=== PATIENT | male | born 1945 | race Asian ===

== ENCOUNTER 2020-02-07 10:15 | Outpatient (CLI) | payer OTHER, SELFPAY ==
--- NOTE | ~2020-02-07 | US_ITS ---
EXAMINATION: US FNA w image guidance DATE: 02/07/2020 11:16 INDICATION: Thyroid nodule. TECHNIQUE: The neck was prepped and draped in the usual sterile manner. 1% lidocaine was used for local anesthe miller. 5 passes were made with a 25G needle into the lesion. Appropriate needle location was document ed with continuous sonographic guidance. There were no immediate complications. The patient understo od to call the ordering physician for results after a week and a half and verbalized that understandi ng. FINDINGS: Grayscale ultrasound images demonstrate needles advanced into a 4.7 cm nodule in left thyroid lobe fo r biopsy. IMPRESSION: 1. Ultrasound-guided fine needle aspiration of a left thyroid nodule. Reviewed, dictated and finalized at location A. CTOR PRODUCT MANAGEMENT
== END 2020-02-07 10:16 | disposition home or self-care (01) ==
PROVIDERS: PCP Nurse Practitioner Family; Visit Provider Nurse Practitioner Family
DX: E04.1 Nontoxic single thyroid nodule (principal)
CPT/HCPCS: 10005; 88173; 88305

== ENCOUNTER → 2020-05-02 08:12 | Outpatient (CLI) | payer OTHER, SELFPAY ==
--- NOTE | ~2020-05-02 | CT_ITS ---
EXAMINATION: CT abdomen wo con DATE: 05/02/2020 08:45 INDICATION: Left upper quadrant pain TECHNIQUE: Computed tomography (CT) of the abdomen was performed without intravenous contrast. The do se-length product (DLP) was 396.25 mGy-cm. Automated exposure control and iterative reconstruction te chnique were employed. COMPARISON: None FINDINGS: Minimal dependent atelectasis is present in the lung bases. The heart size is normal. Withi n the limitations of noncontrast examination, the liver, spleen,, gallbladder, and adrenal glands are normal. Punctate calcification in the head of the pancreas is consistent with chronic pancreatitis. There is a 5 mm hemorrhagic cyst in the right kidney upper pole. A 12 mm cyst is present in the right kidney as well. There is a 9 mm cyst of the left kidney upper pole. No hydronephrosis or hydroureter is identified. The appendix is normal. There are no dilated loops of bowel. No pathologically enlarg ed abdominal lymph nodes are identified. Calcified atherosclerosis is noted. There is mild lumbar spo ndylosis. IMPRESSION: 1. No CT correlate for the patient's symptoms. Reviewed, dictated and finalized at location A. Z OS MAINFRAME SYSTEMS PROGRAMMER
== END ==
PROVIDERS: PCP Family Medicine; Visit Provider Nurse Practitioner Family
DX: R10.12 Left upper quadrant pain (principal)
CPT/HCPCS: 74150

== ENCOUNTER 2021-02-20 08:09 | Outpatient (CLI) | payer OTHER, SELFPAY ==
--- NOTE | 2021-02-20 09:10 | ECG_ITS ---
Measurements Intervals Orange Rate: 66 P: 35 AR: 176 QRS: 266 QRSD: 97 T: 17 QT: 381 QTc: 401 Interpretive Statements SINUS RHYTHM RIGHT AXIS DEVIATION INCOMPLETE RIGHT BUNDLE BRANCH BLOCK INFERIOR INFARCT, AGE INDETERMINATE BASELINE ARTIFACT- I, II, AVR, AVL, AVF ABNORMAL ECG Electronically Signed On 02-20-2021 9:35:31 CORPORATE RECYCLING MANAGER by Ismael Lal D.O.
[2021-02-20 09:40] LABS: Basophils Absolute Auto 0.1 K/mm3 (0.0-0.1); Eosinophils Absolute Auto 0.5 K/mm3 (0-0.3); Eosinophils Percent Auto 8.6 % (0-4.4); Hematocrit 47.7 % (42.0-52.0); Hemoglobin 16.1 g/dL (14.0-18.0); Immature Granulocyte Absolute 0.01 K/mm3 (0.00-0.031); Immature Granulocyte Percent A 0.2 % (0-0.5); Lymphocytes Absolute Auto 1.97 K/mm3 (0.9-3.2); Lymphocytes Percent Auto 33.1 % (18.3-44.2); Mean Corpuscular HGB Conc 33.8 g/dl (32-36); Mean Corpuscular Hemoglobin 31.1 pg (26-34); Mean Corpuscular Volume 92.1 fl (80-100); Mean Platelet Volume 9.7 fl (7.4-10.4); Monocytes Absolute Auto 0.6 K/mm3 (0.1-0.6); Monocytes Percent Auto 9.7 % (2.6-8.5); Neutrophils Absolute Auto 2.8 K/mm3 (1.3-6.7); Neutrophils Percent Auto 47.4 % (45.5-73.1); Platelet Count Result 209 k/mm3 (150-375); Red Blood Count 5.18 M/mm3 (4.6-6.20); Red Cell Distribution Width 13.2 % (11.5-14.5)
[2021-02-20 09:54] LABS: Anion Gap 10 mmol/L (8-16); Blood Urea Nitrogen 11 mg/dL (9-20); Calcium 9.5 mg/dL (8.4-10.2); Carbon Dioxide 31 mmol/L (22-30); Chloride 101 mmol/L (98-107); Estimated Glomerular Filt Rate > 60; Glucose 111 mg/dL (65-110); INR 0.9; Partial Thromboplastin Time 26.2 SECONDS (22.3-36.8); Potassium 3.6 mmol/L (3.4-5.0); Prothrombin Time 12.2 Seconds (11.1-14.7); Sodium 142 mmol/L (137-145)
== END 2021-02-20 08:10 | disposition home or self-care (01) ==
LOC: ANHSURGERY 08:15
PROVIDERS: PCP Family Medicine; Visit Provider Urology
DX: N40.0 Benign prostatic hyperplasia without lower urinary tract symptoms (principal); I10 Essential (primary) hypertension; Z01.818 Encounter for other preprocedural examination; I45.10 Unspecified right bundle-branch block
CPT/HCPCS: 36415; 80048; 85025; 85610; 85730; 87086; 87088; 93005

== ENCOUNTER 2021-02-26 09:39 | Inpatient (IN) | payer OTHER, SELFPAY ==
--- NOTE | 2021-02-20 08:43 | PC.NURSE ---
Report to the Outpatient Waiting Room, entrance under the green pavilion located off [facility], at time 1130 on date __02/24/21 . OR Time: _1:30 PM . - You and your visitor will be asked a series of questions to screen for COVID 19 for your protection. - A mask is required within the hospital. - Only one visitor is allowed at this time. Patient visitors will be guided where to wait when not with patient. Preoperative COVID Testing Requirements: No COVID Test needed if: (proof is required; if not received patient will have Rapid Test prior to entry) - Patient has received COVID Vaccine at least 14 days prior to procedure date or - Patient has positive COVID test result within last 90 days of surgery date. COVID Test needed if above criteria is not met If not COVID vaccinated a COVID test must be conducted within 72 hours of surgery and patient is asked to isolate self from time of testing until procedure. You will go to the [facility] for your COVID testing. The [facility] is located at the corner of [address] [facility]. You will only be called if COVID results are positive and your surgeon may reschedule your elective surgery date. Patients may have clear liquids (water, carbonated beverages, clear teas, apple juice) until 3 hours prior to surgery with a maximum of 20 ounces. - No food from midnight until time of surgery - Infants may have breast milk until 4 hours before surgery, formula 6 hours prior to surgery. - Children will be allowed to drink immediately following surgery. If applicable, please bring a bottle or sippy cup to assist with drinking. Juice, water, soda, and popsicles are readily available. For infants on formula, please bring formula the day of surgery. Pacifiers are allowed. Take the following medications with a SIP of water the morning of surgery: ___NONE Medications to discontinue per physician ____ALL VITAMINS AND SUPPLEMENTS 3 DAYS PRE OP Date to take last dose___02/20/21 Please no make-up, nail [place], hairspray, perfume, deodorant, or body powder the day of surgery. No jewelry (including any body piercings) or valuables the day of surgery, leave them at home. Please take a shower or bath the night before, or the morning of, surgery with an antibacterial soap. Wear comfortable, loose fitting clothing. Children are encouraged to wear pajamas. - Jewelry must be removed prior to entering the operating room. Rings and piercings that are not removed may be cut off. - The hospital will not accept responsibility for valuables. - Please leave all valuables, including medications, at home the day of surgery. If you are going home after surgery, a licensed pile driver operator barge mounted must drive you home. - NO public transportation without another adult. - We recommend that an adult stay with you for 24 hours following discharge. - We also recommend that you do not drive, make important decision, drink alcoholic beverages, or take any drugs that were not prescribed by your health care provider for at least 24 hours after your discharge time. For Pediatric surgeries, we recommend two adults accompany the child home (only one inside the building at this time). Follow any additional instructions given to you from your surgeon. VERBAL instructions given to PATIENT AND DAUGHTER KIM and asked if any additional questions and then verbalized understanding. Patient advised to call surgeon office or pre surgery nurse liaison [phone] if any additional questions.
[2021-02-20 09:12] VITALS: BP 135/78; PULSE 71; RESP 16; TEMP 36.8; O2SAT 97; BMI 25.7
[2021-02-24] VITALS (19 sets, daily range): BP systolic 109–182; BP diastolic 72–106; PULSE 63–84; RESP 14–20; TEMP 36.1–36.9; O2SAT 94–100; BMI 25.4
--- NOTE | 2021-02-24 10:31 | WPDHPUPDATE1 ---
History and Physical Update Update Date/Time: 02/24/21 10:31 History and Physical has been reviewed, including an updated exam of the patient. There are NO changes in the patient's condition. Risks, benefits, and alternatives have been discussed and questions answered. Patient agrees to proceed with procedure.
[2021-02-24] MEDS: LACTATED RINGERS 1,000 ML 30 ML IV CONT (11:30)
--- NOTE | 2021-02-24 11:43 | P.PNAN_ITS ---
Anes - Initial Pre Proc Eval Procedure: Operation Date: 02/24/21 13:30 Proposed Procedures p Trans Urethral Resection Prostate - Abraham Albert MD Date/Time: 02/24/21 11:43 Surgeon: Abraham Albert MD Pre Op Diagnosis: bph Patient Data Age: 75 Gender: M Height: 1.68 m Weight: 72.3 kg Last Vital Signs Temp 36.8 C 02/20/21 09:12 Pulse 71 02/20/21 09:12 Resp 16 02/20/21 09:12 BP 135/78 02/20/21 09:12 Pulse Ox 97 02/20/21 09:12 Allergies Allergy/AdvReac Type Severity Reaction Status Date / Time No Known Allergies Allergy Verified 02/20/21 08:21 Home Medications Medication Instructions Recorded Confirmed Type mirabegron 50 mg tablet,extended 50 mg PO DAILY 04/14/20 02/20/21 History release 24 hr ihmnyq-maqwpyqs-pjlzwxu 1 cap PO TIDWMEAL 11/19/20 02/20/21 History 36,000-114,000-180,000 unit capsule,delay rel metformin 1,000 mg tablet 1,000 mg PO BID #180 tablet 12/29/20 02/20/21 Rx losartan 25 mg tablet 25 mg PO DAILY #30 tablet 01/20/21 02/20/21 Rx atorvastatin 10 mg tablet 10 mg PO QHS tablet 01/22/21 02/20/21 History blood sugar diagnostic #100 ea 01/22/21 01/22/21 Rx blood-glucose meter #1 ea 01/22/21 01/22/21 Rx lancets #100 ea 01/22/21 01/22/21 Rx glipizide 5 mg tablet, extended 5 mg PO DAILY #90 tablet 02/18/21 02/20/21 Rx release 24 hr cyanocobalamin (vitamin B-12) 1,000 mcg PO DAILY 02/20/21 02/20/21 History omega 6-iis-dhh-fish oil [Fish Oil] 1 cap PO DAILY 02/20/21 02/20/21 History tamsulosin 0.4 mg PO HS 02/20/21 02/20/21 History Patient hx anesthesia problems: none Family hx anesthesia problems: none Results Review: All pre-operative results and documents have been reviewed as part of the pre-operative evaluation. PMFSH Past Medical History Medical History Diabetes type 2, uncontrolled Elevated PSA GERD (gastroesophageal reflux disease) Hyperlipidemia Hypertension Paget's disease of skin of scrotum (~2017) Follows at [facility] Thyroid nodule Social History Social History Smoking packs per day: 0.5 Smoking cigarettes per day: 10.0 Years smoked: 20 Smoking pack-years: 10.00 Tobacco type: cigarettes Smoking end date: 03/21/95 Alcohol intake: never Substance use: never Living arrangements: with family Spiritual care concerns: No Anes - Eval Final PreProcedure Day of Procedure 02/24/21 11:43 Patient weight: normal Heart: regular rate and rhythm Lungs: decreased breath sounds Airway: Mallampati scale class III Neurological: other (alert) Last oral intake: >/= 8 hours ASA classification: III Emergent: no Anesthetic plan: proceed Anesthesia type and monitoring: general LMA and standard monitoring Other findings: interpretation thru daughter Results Review: All pre-operative results and documents have been reviewed as part of the pre-operative evaluation. Informed Consent: The patient's anesthetic plan and its attendant risks and benefits were discussed with the patient/family/POA. Questions were solicited and answers provided to the satisfaction of the patient/family/POA.
[2021-02-24 11:55] LABS: Glucose Point of Care 106 mg/dl (65-105)
[2021-02-24] MEDS: ceFAZolin 2 GM/D5W 50 ML 2 GM/50 ML BAG IVPB (12:10)
[2021-02-24] MEDS: LIDOCAINE HCL 2% GEL UROJET 10 ML PKG MUCOUS MEM (12:57)
--- NOTE | 2021-02-24 13:01 | P.OP_ITS ---
Procedure Note - Detailed Date of Procedure 02/24/21 Pre-op Diagnosis bph Post-op Diagnosis same Procedure Performed Transurethral resection of residual prostatic tissue Surgeon Abraham Albert MD Anesthesia general Description of Procedure Patient is taken to the operative suite correctly identified. Once anesthesia was obtained was placed in dorsal lithotomy position and prepped draped usual sterile fashion. Urethra was dilated to 26 Cypriot. Twenty-four Cypriot resectoscope sheath was a plastic the bladder. Patient has some lateral lobe residual tissue but again has a high median bar area. There were no tumors noted. We resected the median bar area. We then took down any residual lateral lobes. Hemostasis was achieved using electrocautery. Chips were then sent for analysis. 2% viscous lidocaine was inserted into the urethra to [address]. We inflated the balloon to 20 cc. This was connected to continuous bladder irrigation and patient is taken recovery room stable condition. He will be admitted for CBI. Neal can come out on Tuesday Estimated Blood Loss 25 Drains Yes Packing No Pathology yes Complications No immediate complications Condition stable Disposition PACU
[2021-02-24 13:21] LABS: Glucose Point of Care 113 mg/dl (65-105)
[2021-02-24] MEDS: LABETALOL HCL INJ 100 MG/20 ML VIAL IV PUSH (13:42)
--- NOTE | 2021-02-24 14:22 | SUR.PHASEI ---
1422 - dr. gonzalez aware of b/p of 162/101. no orders received.
--- NOTE | 2021-02-24 15:35 | ADMGEN ---
This patient, Asael Campbell, was admitted to 2 Medical Room 256-. Patient/family oriented to hospital policies and general routines including ID bracelet, bed and alarms, visiting hours, pain management, procedures, bathroom and other care routines, personal items, smoking policy, room service/diet, and visiting hours. Information on how to activate the Rapid Response Team has been discussed. Patient/Family are encouraged to report perceived risks to care and to ask questions if they do not understand what they are told or what they should do.
[2021-02-24] MEDS: DOCUSATE SODIUM 100 MG CAPSULE PO (16:14)
[2021-02-24] MEDS: DEXTROSE 5%/LACTATED RINGERS 1,000 ML 125 ML IV CONT (16:15)
[2021-02-24] MEDS: HYOSCYAMINE SULFATE 0.125 MG TABLET SUBLINGUAL (16:24)
[2021-02-24 17:58] LABS: Glucose Point of Care 229 mg/dl (65-105)
[2021-02-24] MEDS: metFORMIN HCL 500 MG TABLET 1000 MG PO (17:58)
[2021-02-24] MEDS: ATORVASTATIN 10 MG TABLET PO (20:04)
[2021-02-24] MEDS: TAMSULOSIN HCL 0.4 MG CAPSULE PO (20:04)
[2021-02-24] MEDS: HYDROcodone/acetaminophen (*CRX) 5-325 MG TABLET 1 TAB PO (20:38)
[2021-02-24 21:20] LABS: Glucose Point of Care 246 mg/dl (65-105)
[2021-02-25] VITALS: BP 107/67; PULSE 66; RESP 18; TEMP 36.4; O2SAT 97
[2021-02-25 04:00] VITALS: BP 111/70; PULSE 82; RESP 18; TEMP 36.3; O2SAT 97
[2021-02-25 06:22] LABS: Anion Gap 7 mmol/L (8-16); Blood Urea Nitrogen 9 mg/dL (9-20); Calcium 8.4 mg/dL (8.4-10.2); Carbon Dioxide 26 mmol/L (22-30); Chloride 101 mmol/L (98-107); Estimated CRCL calculation 70 ml/min; Estimated Glomerular Filt Rate > 60; Glucose 130 mg/dL (65-110); Hematocrit 39.7 % (42.0-52.0); Hemoglobin 13.5 g/dL (14.0-18.0); Potassium 3.7 mmol/L (3.4-5.0); Sodium 134 mmol/L (137-145)
[2021-02-25 07:47] LABS: Glucose Point of Care 125 mg/dl (65-105)
[2021-02-25] MEDS: metFORMIN HCL 500 MG TABLET 1000 MG PO ×2 (08:01→17:12)
[2021-02-25] MEDS: DOCUSATE SODIUM 100 MG CAPSULE PO ×2 (08:01→17:12)
[2021-02-25] MEDS: LOSARTAN POTASSIUM 25 MG TABLET PO (08:01)
[2021-02-25] MEDS: glipiZIDE XL 5 MG TABCR PO (08:01)
--- NOTE | 2021-02-25 08:04 | WPDUROPN2 ---
Progress Note: A&P Assessment and Plan (1) BPH (benign prostatic hyperplasia): Code(s): N40.0 - Benign prostatic hyperplasia without lower urinary tract symptoms Status: Acute Assessment and Plan: Doing well overall. Urine still somewhat red requiring continuous bladder irrigation. Will continue that for today and re-evaluate later this afternoon. Subjective Subjective Date/Time Seen: 02/25/21 08:04 Post Op day: 1 (TUR of residual prostatic tissue) Principal diagnosis: BPH Interval history: Patient's son communicated that he did well overnight. May have had a slight spasm. Otherwise no major complaints. Review of Systems Review of Systems: All systems reviewed & are unremarkable except as noted in HPI and below Exam Const: General: cooperative and no acute distress Objective Data Vital Signs Vital Signs: Vital Signs - 24 hr 02/24/21 11:30 02/24/21 13:04 02/24/21 13:15 Temperature 36.2 C L 36.9 C Pulse Rate 72 81 78 Respiratory Rate 16 20 14 Blood Pressure 150/85 H 109/72 114/77 Pulse Oximetry 99 99 100 02/24/21 13:30 02/24/21 13:40 02/24/21 13:42 Temperature Pulse Rate 84 83 80 Respiratory Rate 16 Blood Pressure 167/94 H 182/106 H Pulse Oximetry 97 94 02/24/21 13:55 02/24/21 14:10 02/24/21 14:25 Temperature Pulse Rate 71 70 71 Respiratory Rate 14 14 14 Blood Pressure 163/102 H 173/104 H 162/101 H Pulse Oximetry 94 94 94 02/24/21 14:40 02/24/21 14:55 02/24/21 15:10 Temperature Pulse Rate 71 77 66 Respiratory Rate 16 18 20 Blood Pressure 164/100 H 156/95 H 157/81 H Pulse Oximetry 95 97 96 02/24/21 15:20 02/24/21 15:35 02/24/21 15:45 Temperature 36.4 C Pulse Rate 68 65 Respiratory Rate 16 16 16 Blood Pressure 141/80 H 152/82 H Pulse Oximetry 98 98 99 02/24/21 16:00 02/24/21 16:30 02/24/21 17:30 Temperature 36.4 C 36.6 C 36.6 C Pulse Rate 66 77 69 Respiratory Rate 18 18 18 Blood Pressure 149/81 H 150/81 H 139/76 Pulse Oximetry 97 99 97 02/24/21 19:48 02/25/21 00:00 02/25/21 04:00 Temperature 36.1 C L 36.4 C 36.3 C L Pulse Rate 63 66 82 Respiratory Rate 18 18 18 Blood Pressure 135/75 107/67 111/70 Pulse Oximetry 98 97 97 Intake/Output Intake/Output: Intake & Output 02/22/21 02/23/21 02/24/21 02/25/21 23:59 23:59 23:59 23:59 Intake Total 520 1340 Output Total 5850 2100 Balance -2926 -772 Meds/Results Medications: Active Medications Generic Name Dose Route Start Last Admin Trade Name Freq PRN Reason Stop Dose Admin Hydrocodone Bitart/Acetaminophen 1 tab 02/24/21 15:28 02/24/21 20:38 Hydrocodone/Acetaminophen (*Crx) 5-325 Mg Tablet PO 1 tab Q4H PRN Administration Pain Rated 1-6 Atorvastatin Calcium 10 mg 02/24/21 21:00 02/24/21 20:04 Atorvastatin 10 Mg Tablet PO 10 mg HS BRET Administration Cephalexin HCl 500 mg 02/25/21 13:00 Cephalexin 500 Mg Capsule PO QID BRET Docusate Sodium 100 mg 02/24/21 17:00 02/25/21 08:01 Docusate Sodium 100 Mg Capsule PO 100 mg BID BRET Administration Glipizide 5 mg 02/25/21 09:00 02/25/21 08:01 Glipizide Xl 5 Mg Tabcr PO 5 mg DAILY BRET Administration Hyoscyamine 0.125 mg 02/24/21 15:28 02/24/21 16:24 Hyoscyamine Sulfate 0.125 Mg Tablet SUBLINGUAL 0.125 mg Q6H PRN Administration Bladder Spasm Losartan Potassium 25 mg 02/25/21 09:00 02/25/21 08:01 Losartan Potassium 25 Mg Tablet PO 25 mg DAILY BRET Administration Metformin HCl 1,000 mg 02/24/21 17:00 02/25/21 08:01 Metformin Hcl 500 Mg Tablet PO 1,000 mg BID BRET Administration Morphine Sulfate 2 mg 02/24/21 15:28 Morphine Sulfate (*Crx) 2 Mg/Ml Inj IV PUSH Q2H PRN Pain Rated 7-10 Naloxone HCl 0.1 mg 02/24/21 15:28 Naloxone Hcl 0.4 Mg/Ml Vial IV PUSH Q2M PRN Opiate Reversal Ondansetron HCl 4 mg 02/24/21 15:28 Ondansetron Inj 4 Mg/2 Ml Vial IV PUSH Q12H PRN Nausea And Vomiting [place]
[2021-02-25 08:12] VITALS: BP 149/80; PULSE 88; RESP 18; TEMP 36.9; O2SAT 98
--- NOTE | 2021-02-25 08:58 | WPDANESPN ---
Anes - Prog Note Post-Op Date/Time: 02/25/21 08:58 Cardiovascular status: normal Respiratory status: normal Airway patency: baseline Mental status: baseline Post-Op hydration status: normal Vital Signs: Last Vital Signs Temp 36.9 C 02/25/21 08:12 Pulse 88 02/25/21 08:12 Resp 18 02/25/21 08:12 BP 149/80 H 02/25/21 08:12 Pulse Ox 98 02/25/21 08:12 Pain Score (VAS): 2 I/O: Intake & Output 02/24/21 02/25/21 02/25/21 23:59 07:59 15:59 Intake Total 170 1340 120 Output Total 1500 2100 Balance -1330 -760 120 Laboratory Tests 02/25/21 05:42 02/25/21 05:42 02/24/21 02/24/21 02/24/21 11:53 13:19 17:56 Hgb Hct Sodium Potassium Chloride Carbon Dioxide Anion Gap BUN Creatinine Estim Creat Clear Calc Estimated GFR Glucose POC Capillary Glucose 106 H 113 H 229 H Calcium 02/24/21 02/25/21 02/25/21 20:05 05:42 05:42 Hgb 13.5 L Hct 39.7 L Sodium 134 L Potassium 3.7 Chloride 101 Carbon Dioxide 26 Anion Gap 7 L BUN 9 Creatinine 0.70 Estim Creat Clear Calc 70 Estimated GFR > 60 Glucose 130 H POC Capillary Glucose 246 H Calcium 8.4 02/25/21 07:33 Hgb Hct Sodium Potassium Chloride Carbon Dioxide Anion Gap BUN Creatinine Estim Creat Clear Calc Estimated GFR Glucose POC Capillary Glucose 125 H Calcium Post-procedural complaints: none Patient Feedback: Patient satisfied with anesthetic care.
[2021-02-25 11:19] LABS: Glucose Point of Care 124 mg/dl (65-105)
[2021-02-25 12:22] VITALS: BP 120/72; PULSE 100; RESP 18; TEMP 37.2; O2SAT 97
[2021-02-25] MEDS: CEPHALEXIN 500 MG CAPSULE PO ×3 (13:24→20:01)
[2021-02-25 16:36] LABS: Glucose Point of Care 166 mg/dl (65-105)
[2021-02-25 16:46] VITALS: BP 144/56; PULSE 100; RESP 18; TEMP 37.3; O2SAT 95
[2021-02-25 20:00] VITALS: BP 115/68; PULSE 81; RESP 16; TEMP 37; O2SAT 96
[2021-02-25] MEDS: ATORVASTATIN 10 MG TABLET PO (20:01)
[2021-02-25] MEDS: TAMSULOSIN HCL 0.4 MG CAPSULE PO (20:01)
[2021-02-26] VITALS (8 sets, daily range): BP systolic 108–138; BP diastolic 64–76; PULSE 88–109; RESP 16–18; TEMP 36.1–36.7; O2SAT 95–97
[2021-02-26 07:38] LABS: Glucose Point of Care 128 mg/dl (65-105)
[2021-02-26] MEDS: CEPHALEXIN 500 MG CAPSULE PO ×4 (08:43→20:28)
[2021-02-26] MEDS: DOCUSATE SODIUM 100 MG CAPSULE PO ×2 (08:43→16:35)
[2021-02-26] MEDS: glipiZIDE XL 5 MG TABCR PO (08:43)
[2021-02-26] MEDS: metFORMIN HCL 500 MG TABLET 1000 MG PO ×2 (08:43→16:35)
[2021-02-26] MEDS: LOSARTAN POTASSIUM 25 MG TABLET PO (08:43)
[2021-02-26 11:16] LABS: Hematocrit 40.2 % (42.0-52.0)
--- NOTE | 2021-02-26 12:06 | WPDUROPN2 ---
Progress Note: A&P Assessment and Plan (1) BPH (benign prostatic hyperplasia): Code(s): N40.0 - Benign prostatic hyperplasia without lower urinary tract symptoms Status: Acute (2) Gross hematuria: Code(s): R31.0 - Gross hematuria Status: Acute Assessment and Plan: Improved slightly with high flow CBI. H&H is improved. He will be NPO after midnight and we will re-assess tomorrow, if urine remains bloody on CBI will plan to go to the OR for a cystoscopy with fulgeration and morris exchange. Subjective Subjective Date/Time Seen: 02/26/21 12:06 POD #2 TURP Patient is doing well, he denies pain, however his urine remains bloody with clots on high flow CBI. His H&H is improved from yesterday. He is tolerating diet and activity well. Review of Systems Cardiovascular: Cardiovascular: Denies chest pain Respiratory: Respiratory: Reports no additional respiratory complaints Gastrointestinal: Gastrointestinal: Denies abdominal pain, Denies nausea and Denies vomiting Genitourinary: Genitourinary: Reports hematuria, Denies dysuria, Denies flank pain and Denies urinary urgency Exam Resp: Effort & Inspection: normal respiratory effort Cardio: Rate: regular rate GI: GI Palp: Yes Soft to palpation and No Tenderness to palpation present (GI) : General: Yes no CVA tenderness Urinary Catheter: Urinary Catheter: patent and draining, urine red and urine with clots Extrem: General: no edema Objective Data Vital Signs Vital Signs: Vital Signs - 24 hr 02/25/21 12:22 02/25/21 16:46 02/25/21 20:00 Temperature 99.0 F 99.2 F 98.6 F Pulse Rate 100 100 81 Respiratory Rate 18 18 16 Blood Pressure 120/72 144/56 H 115/68 Pulse Oximetry 97 95 96 02/26/21 00:00 02/26/21 04:00 02/26/21 08:45 Temperature 96.9 F L 97.9 F 98.0 F Pulse Rate 109 H 100 99 Respiratory Rate 16 16 18 Blood Pressure 111/71 108/71 115/65 Pulse Oximetry 96 95 96 Intake/Output Intake/Output: Intake & Output 02/23/21 02/24/21 02/25/21 02/26/21 23:59 23:59 23:59 23:59 Intake Total 520 1820 240 Output Total 1197 6086 5200 [id number] [id number] [id number] Meds/Results Medications: Active Medications Generic Name Dose Route Start Last Admin Trade Name Freq PRN Reason Stop Dose Admin Hydrocodone Bitart/Acetaminophen 1 tab 02/24/21 15:28 02/24/21 20:38 Hydrocodone/Acetaminophen (*Crx) 5-325 Mg Tablet PO 1 tab Q4H PRN Administration Pain Rated 1-6 Atorvastatin Calcium 10 mg 02/24/21 21:00 02/25/21 20:01 Atorvastatin 10 Mg Tablet PO 10 mg HS BRET Administration Cephalexin HCl 500 mg 02/25/21 13:00 02/26/21 08:43 Cephalexin 500 Mg Capsule PO 500 mg QID BRET Administration Docusate Sodium 100 mg 02/24/21 17:00 02/26/21 08:43 Docusate Sodium 100 Mg Capsule PO 100 mg BID BRET Administration Glipizide 5 mg 02/25/21 09:00 02/26/21 08:43 Glipizide Xl 5 Mg Tabcr PO 5 mg DAILY BRET Administration Hyoscyamine 0.125 mg 02/24/21 15:28 02/24/21 16:24 Hyoscyamine Sulfate 0.125 Mg Tablet SUBLINGUAL 0.125 mg Q6H PRN Administration Bladder Spasm Losartan Potassium 25 mg 02/25/21 09:00 02/26/21 08:43 Losartan Potassium 25 Mg Tablet PO 25 mg DAILY BRET Administration Metformin HCl 1,000 mg 02/24/21 17:00 02/26/21 08:43 Metformin Hcl 500 Mg Tablet PO 1,000 mg BID BRET Administration Morphine Sulfate 2 mg 02/24/21 15:28 Morphine Sulfate (*Crx) 2 Mg/Ml Inj IV PUSH Q2H PRN Pain Rated 7-10 Naloxone HCl 0.1 mg 02/24/21 15:28 Naloxone Hcl 0.4 Mg/Ml Vial IV PUSH Q2M PRN Opiate Reversal Ondansetron HCl 4 mg 02/24/21 15:28 Ondansetron Inj 4 Mg/2 Ml Vial IV PUSH Q12H PRN Nausea And Vomiting Tamsulosin HCl 0.4 mg 02/24/21 21:00 02/25/21 20:01 Tamsulosin Hcl 0.4 Mg Capsule PO 0.4 mg HS BRET Administration Labs Labs: Laboratory Results - last 24 hr 02/25/21 02/26/21 02/26/21
[2021-02-26] MEDS: HYOSCYAMINE SULFATE 0.125 MG TABLET SUBLINGUAL ×2 (13:30→20:26)
[2021-02-26] MEDS: HYDROcodone/acetaminophen (*CRX) 5-325 MG TABLET 1 TAB PO ×2 (13:30→20:27)
[2021-02-26] MEDS: TAMSULOSIN HCL 0.4 MG CAPSULE PO (20:28)
[2021-02-26] MEDS: ATORVASTATIN 10 MG TABLET PO (20:28)
[2021-02-26] MEDS: MORPHINE SULFATE (*CRX) 2 MG/ML INJ IV PUSH (22:55)
[2021-02-26] MEDS: ONDANSETRON INJ 4 MG/2 ML VIAL IV PUSH (23:00)
[2021-02-27 02:00] VITALS: BP 110/71; PULSE 96; RESP 16; TEMP 36.6; O2SAT 98
[2021-02-27] MEDS: HYDROcodone/acetaminophen (*CRX) 5-325 MG TABLET 1 TAB PO (04:13)
[2021-02-27] MEDS: HYOSCYAMINE SULFATE 0.125 MG TABLET SUBLINGUAL (04:13)
[2021-02-27 05:42] VITALS: BP 107/70; PULSE 92; RESP 16; TEMP 36.7; O2SAT 95
[2021-02-27 06:29] LABS: Hemoglobin 13.1 g/dL (14.0-18.0)
[2021-02-27 08:00] VITALS: BP 126/69; PULSE 82; RESP 16; TEMP 36.6; O2SAT 95
--- NOTE | 2021-02-27 08:17 | WPDUROPN2 ---
Progress Note: A&P Assessment and Plan (1) BPH (benign prostatic hyperplasia): Code(s): N40.0 - Benign prostatic hyperplasia without lower urinary tract symptoms Status: Acute Assessment and Plan: Postoperative day 3. Transurethral section of prostate. Urine is continuing to clear. I personally irrigated his catheter without any evidence of clots. Will wean to off. If remains fairly clear will discharge home later today with catheter. Will plan on Neal catheter removal next Tuesday or Tuesday (2) Gross hematuria: Code(s): R31.0 - Gross hematuria Status: Acute Assessment and Plan: See above Subjective Subjective Date/Time Seen: 02/27/21 08:17 Post Op day: 3 Principal diagnosis: BPH Interval history: Continuing to improve with clear urine with minimal CBI at this time. Review of Systems Review of Systems: All systems reviewed & are unremarkable except as noted in HPI and below Exam Const: General: cooperative, comfortable and no acute distress Eyes: General: appearance normal, both eyes and all related structures Resp: Effort & Inspection: normal respiratory effort Cardio: Rate: regular rate Rhythm: regular rhythm Objective Data Vital Signs Vital Signs: Vital Signs - 24 hr 02/26/21 08:43 02/26/21 08:45 02/26/21 13:30 Temperature 36.7 C 36.7 C Pulse Rate 99 94 Respiratory Rate 18 18 18 Blood Pressure 115/65 123/64 Pulse Oximetry 97 96 97 02/26/21 16:00 02/26/21 20:00 02/26/21 22:25 Temperature 36.6 C 36.4 C L Pulse Rate 88 99 99 Respiratory Rate 18 16 16 Blood Pressure 111/66 138/76 Pulse Oximetry 97 95 95 02/27/21 02:00 02/27/21 05:42 Temperature 36.6 C 36.7 C Pulse Rate 96 92 Respiratory Rate 16 16 Blood Pressure 110/71 107/70 Pulse Oximetry 98 95 Intake/Output Intake/Output: Intake & Output 02/24/21 02/25/21 02/26/21 02/27/21 23:59 23:59 23:59 23:59 Intake Total 520 1820 980 Output Total 5850 4150 63771 1200 [facility] -[id number] -[id number] -1200 Meds/Results Medications: Active Medications Generic Name Dose Route Start Last Admin Trade Name Freq PRN Reason Stop Dose Admin Hydrocodone Bitart/Acetaminophen 1 tab 02/24/21 15:28 02/27/21 04:13 Hydrocodone/Acetaminophen (*Crx) 5-325 Mg Tablet PO 1 tab Q4H PRN Administration Pain Rated 1-6 Atorvastatin Calcium 10 mg 02/24/21 21:00 12 20:28 Atorvastatin 10 Mg Tablet PO 10 mg HS BRET Administration Cephalexin HCl 500 mg 02/25/21 13:00 02/26/21 20:28 Cephalexin 500 Mg Capsule PO 500 mg QID BRET Administration Docusate Sodium 100 mg 02/24/21 17:00 02/26/21 16:35 Docusate Sodium 100 Mg Capsule PO 100 mg BID BRET Administration Glipizide 5 mg 02/25/21 09:00 02/26/21 08:43 Glipizide Xl 5 Mg Tabcr PO 5 mg DAILY BRET Administration Hyoscyamine 0.125 mg 02/24/21 15:28 02/27/21 04:13 Hyoscyamine Sulfate 0.125 Mg Tablet SUBLINGUAL 0.125 mg Q6H PRN Administration Bladder Spasm Losartan Potassium 25 mg 02/25/21 09:00 02/26/21 08:43 Losartan Potassium 25 Mg Tablet PO 25 mg DAILY BRET Administration Metformin HCl 1,000 mg 02/24/21 17:00 02/26/21 16:35 Metformin Hcl 500 Mg Tablet PO 1,000 mg BID BRET Administration Morphine Sulfate 2 mg 02/24/21 15:28 02/26/21 22:55 Morphine Sulfate (*Crx) 2 Mg/Ml Inj IV PUSH 2 mg Q2H PRN Administration Pain Rated 7-10 Naloxone HCl 0.1 mg 02/24/21 15:28 Naloxone Hcl 0.4 Mg/Ml Vial IV PUSH Q2M PRN Opiate Reversal Ondansetron HCl 4 mg 02/24/21 15:28 02/26/21 23:00 Ondansetron Inj 4 Mg/2 Ml Vial IV PUSH 4 mg Q12H PRN Administration Nausea And Vomiting Tamsulosin HCl 0.4 mg 02/24/21 21:00 02/26/21 20:28 Tamsulosin Hcl 0.4 Mg Capsule PO 0.4 mg HS BRET Administration Labs Labs: Laboratory Results - last 24 hr 02/26/21 02/27/21 10:54 05:37 Hgb 14.0 13.1 L Hct 40.2 L 38.0 L
[2021-02-27] MEDS: CEPHALEXIN 500 MG CAPSULE PO ×3 (09:18→18:30)
[2021-02-27] MEDS: glipiZIDE XL 5 MG TABCR PO (09:18)
[2021-02-27] MEDS: LOSARTAN POTASSIUM 25 MG TABLET PO (09:18)
[2021-02-27] MEDS: DOCUSATE SODIUM 100 MG CAPSULE PO ×2 (09:18→18:30)
[2021-02-27] MEDS: metFORMIN HCL 500 MG TABLET 1000 MG PO ×2 (09:18→18:30)
[2021-02-27 09:20] VITALS: O2SAT 95
[2021-02-27 12:00] VITALS: BP 120/64; PULSE 89; RESP 16; TEMP 36.6; O2SAT 95
--- NOTE | 2021-02-27 15:52 | PM.DS ---
DS: Admitting Diagnosis Discharge Date 02/27/2021 Admitting Diagnosis BPH DS: Discharge Diagnosis Discharge Diagnosis (1) Gross hematuria: Code(s): R31.0 - Gross hematuria Status: Acute (2) BPH (benign prostatic hyperplasia): Code(s): N40.0 - Benign prostatic hyperplasia without lower urinary tract symptoms Status: Acute DS: Summary Hospital Course Hospital Course: See below Time Spent with Patient Time attestation: Total time spent providing and/or coordinating discharge services: DS: Data Data Completed and Pending Completed studies during hospitalization: Pending at discharge 02/24/21 12:57 Surgical [PTH] Routine Labs on day of discharge: Labs from last 24 hours 02/27/21 05:37 Hgb 13.1 L Hct 38.0 L Discharge Plan Discharge Attending physician on discharge: Abraham Albert Discharging Clinician: Genia Bonilla Anticipated Discharge Date/Time: 02/27/21 15:45 Patient Disposition: Home, Self-Care Activity: may shower Diet: as tolerated Discharge Instructions: Follow up in the office on 03/03/2021 at 10:30am with Genia DIA to have your morris removed. Also follow up on 03/12/2021 at 9:30am with Dr. Albert. If you develop a fever, worsening blood in your urine or severe pain call the office or go to the ER. Patient Instructions: Antibiotic Form Stand Alone Forms: General Discharge Information Follow-up/Referrals: Abraham Albert MD [Physician] - Discharge Medications: New tramadol [Ultram] 50 mg tablet 50 mg PO Q6H PRN (Reason: pain) Qty: 20 RF: 0 hyoscyamine sulfate [Anaspaz] 0.125 mg Tablet,Disintegrating 0.125 mg sublingual Q6H PRN (Reason: Bladder Spasm) Qty: 20 RF: 0 sulfamethoxazole-trimethoprim [Bactrim DS] 800-160 mg tablet 1 tablet PO Q12H Qty: 10 RF: 0 Continued Myrbetriq 50 mg tablet extended release 24 hr 50 mg PO DAILY RF: 0 Creon 36,000-114,000- 180,000 unit capsule,delayed release(DR/EC) 1 cap PO TIDWMEAL RF: 0 atorvastatin 10 mg tablet 10 mg PO QHS RF: 0 (DME) blood-glucose meter [Blood Glucose Monitoring] Kit See Rx Instructions .Route Qty: 1 RF: 0 (DME) Pharmacist Choice Strip See Rx Instructions .Route Qty: 100 RF: 2 (DME) lancets [Fingerstix Lancets] Misc See Rx Instructions .Route Qty: 100 RF: 2 tamsulosin 0.4 mg capsule 0.4 mg PO HS RF: 0 cyanocobalamin (vitamin B-12) 1,000 mcg Tablet 1,000 mcg PO DAILY RF: 0 omega 9-lce-ztd-fish oil [Fish Oil] 60-90-500 mg Capsule 1 cap PO DAILY RF: 0 metformin 1,000 mg tablet 1,000 mg PO BID Qty: 180 RF: 1 losartan 25 mg tablet 25 mg PO DAILY Qty: 30 RF: 3 glipizide 5 mg tablet extended release 24hr 5 mg PO DAILY Qty: 90 RF: 0 Date of admission: 02/26/21 12:48 Primary Care Provider: Emily Diaz Admitting Provider: Abraham Albert Attending physician on admission: Abraham Albert Condition: Improved
--- NOTE | 2021-02-27 15:53 | PM.DS ---
DS: Admitting Diagnosis Discharge Date 02/27/2021 Admitting Diagnosis BPH DS: Summary Hospital Course Hospital Course: See below Time Spent with Patient Time attestation: Total time spent providing and/or coordinating discharge services: 30 minutes Patient is s/p TURP on 02/24/2021, he tolerated the procedure with Dr. Albert well and went to recovery in stable condition. He then was transferred to the floor for further observation on CBI. He has continued to need CBI for two days d/t ongoing gross hematuria. The CBI was then weaned to off this morning and urine remains clear and light pink in color. He is tolerating pain and activity well. He will be discharged home today to resume all home medications including Levsin for bladder spasms, Ultram for pain and Bactrim to prevent infection. He will resume activity as tolerated and diabetic diet. He will be discharged home with his morris catheter and it will be removed next week. Exam Resp: Effort & Inspection: normal respiratory effort Cardio: Rate: regular rate GI: GI Palp: Yes Soft to palpation and No Tenderness to palpation present (GI) : General: Yes no CVA tenderness Urinary Catheter: Urinary Catheter: patent and draining, urine clear and urine pink Extrem: General: no edema DS: Data Data Completed and Pending Completed studies during hospitalization: Pending at discharge 02/24/21 12:57 Surgical [PTH] Routine Labs on day of discharge: Labs from last 24 hours 02/27/21 05:37 Hgb 13.1 L Hct 38.0 L Discharge Plan Discharge Attending physician on discharge: Abraham Albert Discharging Clinician: Genia Bonilla Anticipated Discharge Date/Time: 02/27/21 15:45 Patient Disposition: Home, Self-Care Activity: july shower Diet: as tolerated Discharge Instructions: Follow up in the office on 03/03/2021 at 10:30am with Genia DIA to have your morris removed. Also follow up on 03/12/2021 at 9:30am with Dr. Albert. If you develop a fever, worsening blood in your urine or severe pain call the office or go to the ER. Patient Instructions: Antibiotic Form Stand Alone Forms: General Discharge Information Follow-up/Referrals: Abraham Albert MD [Physician] - Discharge Medications: New tramadol [Ultram] 50 mg tablet 50 mg PO Q6H PRN (Reason: pain) Qty: 20 RF: 0 hyoscyamine sulfate [Anaspaz] 0.125 mg Tablet,Disintegrating 0.125 mg sublingual Q6H PRN (Reason: Bladder Spasm) Qty: 20 RF: 0 sulfamethoxazole-trimethoprim [Bactrim DS] 800-160 mg tablet 1 tablet PO Q12H Qty: 10 RF: 0 Continued Myrbetriq 50 mg tablet extended release 24 hr 50 mg PO DAILY RF: 0 Creon 36,000-114,000- 180,000 unit capsule,delayed release(DR/EC) 1 cap PO TIDWMEAL RF: 0 atorvastatin 10 mg tablet 10 mg PO QHS RF: 0 (DME) blood-glucose meter [Blood Glucose Monitoring] Kit See Rx Instructions .Route Qty: 1 RF: 0 (DME) Pharmacist Choice Strip See Rx Instructions .Route Qty: 100 RF: 2 (DME) lancets [Fingerstix Lancets] Misc See Rx Instructions .Route Qty: 100 RF: 2 tamsulosin 0.4 mg capsule 0.4 mg PO HS RF: 0 cyanocobalamin (vitamin B-12) 1,000 mcg Tablet 1,000 mcg PO DAILY RF: 0 omega 8-jyk-guv-fish oil [Fish Oil] 60-90-500 mg Capsule 1 cap PO DAILY RF: 0 metformin 1,000 mg tablet 1,000 mg PO BID Qty: 180 RF: 1 losartan 25 mg tablet 25 mg PO DAILY Qty: 30 RF: 3 glipizide 5 mg tablet extended release 24hr 5 mg PO DAILY Qty: 90 RF: 0 Date of admission: 02/26/21 12:48 Primary Care Provider: Emily Diaz Admitting Provider: Abraham Albert Attending physician on admission: Abraham Albert Condition: Improved
[2021-02-27 16:00] VITALS: BP 117/60; PULSE 89; RESP 16; TEMP 36.8; O2SAT 97
--- NOTE | 2021-02-27 19:41 | PC.NURSE ---
patient refuses evaluation by a psychiatrist at this time. will come back and try again tomorrow
== END 2021-02-27 19:45 | disposition home or self-care (01) | DRG 714 ==
LOC: ANHSURGERY 09:41 → ANH2MED 09:41
PROVIDERS: Admitting Provider Urology; PCP Family Medicine; Visit Provider Nurse Practitioner Adult Health
PROC: 0VT08ZZ Resection of Prostate, Via Natural or Artificial Opening Endoscopic (ICD-10-PCS; CPT 52601; principal; 2021-02-24 13:30)
DX: N40.0 Benign prostatic hyperplasia without lower urinary tract symptoms (principal); K21.9 Gastro-esophageal reflux disease without esophagitis; E78.5 Hyperlipidemia, unspecified; I10 Essential (primary) hypertension; E11.9 Type 2 diabetes mellitus without complications; E04.1 Nontoxic single thyroid nodule; F17.210 Nicotine dependence, cigarettes, uncomplicated; R31.0 Gross hematuria; Z79.84 Long term (current) use of oral hypoglycemic drugs
CPT/HCPCS: 36415; 80048; 82948; 85014; 85018; 88305; A9270; G0378; J0690; J2270; J2370; J2405; J2704; J3010; J7120; J7121

== ENCOUNTER 2021-10-05 14:43 | Outpatient (CLI) | payer OTHER, SELFPAY ==
[2021-10-05 19:16] LABS: Alanine Aminotransferase 75 U/L (6-50); Albumin Level 4.7 g/dL (3.5-5.1); Alkaline Phosphatase 65 U/L (38-126); Anion Gap 10 mmol/L (8-16); Aspartate Amino Transferase 60 U/L (17-59); Bilirubin,Total 0.5 mg/dL (0.2-1.3); Blood Urea Nitrogen 18 mg/dL (9-20); Calcium 9.5 mg/dL (8.4-10.2); Carbon Dioxide 31 mmol/L (22-30); Chloride 100 mmol/L (98-107); Estimated Glomerular Filt Rate > 60; Glucose 75 mg/dL (65-110); Potassium 4.3 mmol/L (3.4-5.0); Sodium 141 mmol/L (137-145)
[2021-10-05 21:01] LABS: Hemoglobin A1C 8.1 % (<5.7)
== END 2021-10-05 14:44 | disposition home or self-care (01) ==
LOC: ANHGOSHLAB 14:45
PROVIDERS: PCP Family Medicine; Visit Provider Family Medicine
DX: E11.9 Type 2 diabetes mellitus without complications (principal); I10 Essential (primary) hypertension
CPT/HCPCS: 36415; 80053; 83036

== ENCOUNTER 2021-12-28 12:21 | Emergency (ER) | payer OTHER, SELFPAY ==
--- NOTE | ~2021-12-28 | CT_ITS ---
EXAMINATION: CT abdomen pelvis w con INDICATION: Abdominal pain TECHNIQUE: Computed tomographic images of the abdomen and pelvis were obtained after the administrati on of 100 cc of Omnipaque 350 intravenous contrast. The dose-length product (DLP) was 643.14 mGy-cm. Automated exposure control and iterative reconstruction technique were employed. COMPARISON: 05/02/2020 FINDINGS: Minimal dependent atelectasis is present in the lung bases. The heart size is normal. There is a 3 mm cyst of the left hepatic lobe. The spleen,, gallbladder, and adrenal glands are normal. A punctate calcification in the head of the pancreas is consistent with chronic pancreatitis. Cysts of the kidneys measure up to 11 mm on the right. No pathologically enlarged abdominal or pelvic lymph no donnie are identified. There is no free intraperitoneal gas or evidence of bowel obstruction. The append ix is normal. There is mild lumbar spondylosis. There is a 1.6 cm fluid attenuation mass in the right scrotal sac which could reflect a cyst or spermatocele of the epididymis. IMPRESSION: 1. No CT correlate for the patient's symptoms. 2. Small area of fluid attenuation in the right scrotal sac which could reflect a cyst or spermatocel e of the epididymis. Follow-up with nonemergent scrotal ultrasound is recommended. Reviewed, dictated and finalized at location A. IMPRESSION: 1. No CT correlate for the patient's symptoms. 2. Small area of fluid attenuation in the right scrotal sac which could reflect a cyst or spermatocele of the epididymis. Follow-up with nonemergent scrotal u ltrasound is recommended.
[2021-12-28 12:26] VITALS: BP 168/90; PULSE 81; RESP 16; TEMP 36.3; O2SAT 100
[2021-12-28 12:40] LABS: Basophils Absolute Auto 0.1 K/mm3 (0.0-0.1); Basophils Percent Auto 0.4 % (0.2-1.2); Eosinophils Absolute Auto 6.4 K/mm3 (0-0.3); Hematocrit 48.9 % (42.0-52.0); Hemoglobin 16.6 g/dL (14.0-18.0); Immature Granulocyte Absolute 0.06 K/mm3 (0.00-0.031); Immature Granulocyte Percent A 0.4 % (0-0.5); Lymphocytes Absolute Auto 1.81 K/mm3 (0.9-3.2); Lymphocytes Percent Auto 11.1 % (18.3-44.2); Mean Corpuscular HGB Conc 33.9 g/dl (32-36); Mean Corpuscular Hemoglobin 30.9 pg (26-34); Mean Corpuscular Volume 91.1 fl (80-100); Mean Platelet Volume 9.1 fl (7.4-10.4); Monocytes Absolute Auto 0.9 K/mm3 (0.1-0.6); Monocytes Percent Auto 5.5 % (2.6-8.5); Neutrophils Absolute Auto 7.1 K/mm3 (1.3-6.7); Neutrophils Percent Auto 43.6 % (45.5-73.1); Platelet Count Result 233 k/mm3 (150-375); Red Blood Count 5.37 M/mm3 (4.6-6.20); Red Cell Distribution Width 13.6 % (11.5-14.5); White Blood Count 16.3 K/mm3 (4.5-10.0)
[2021-12-28 12:55] LABS: Alanine Aminotransferase 51 U/L (6-50); Albumin Level 4.4 g/dL (3.5-5.1); Alkaline Phosphatase 93 U/L (38-126); Anion Gap 10 mmol/L (8-16); Aspartate Amino Transferase 47 U/L (17-59); Bilirubin,Total 0.6 mg/dL (0.2-1.3); Blood Urea Nitrogen 9 mg/dL (9-20); Calcium 9.1 mg/dL (8.4-10.2); Carbon Dioxide 28 mmol/L (22-30); Chloride 102 mmol/L (98-107); Estimated CRCL calculation 54 ml/min; Estimated Glomerular Filt Rate > 60; Glucose 153 mg/dL (65-110); Lipase 125 U/L (23-300); Potassium 4.4 mmol/L (3.4-5.0); Sodium 140 mmol/L (137-145)
[2021-12-28 13:12] LABS: Add Urine Microscopic? YES; Appearance Urine Clear (Clear); Bilirubin Urine Negative (Negative); Blood Urine Negative (Negative); Color Urine Amber (Yellow); Glucose Urine UA Negative (Negative); Ketones Urine Trace mg/dL (Negative); Leukocyte Esterase Ur Negative LEU/UL (Negative); Mucus Urine Few /lpf; Nitrate Urine Negative (Negative); Protein Urine 2+ mg/dL (Negative); RBC Urine 0-2 /hpf (0-2); Specific Grav Ur 1.026 (1.001-1.035); Urobilinogen Urine Negative mg/dL (<2.0); WBC Urine 0-3 /hpf
--- NOTE | 2021-12-28 14:01 | ED.GENADULT ---
HPI - General Adult General Chief complaint: Abdominal Pain Stated complaint: ABD PAIN WITH CONSTIPATION Time Seen by Provider: 12/28/21 13:58 Source: RN notes reviewed History of Present Illness HPI narrative: Patient presents emergency department from home for abdominal pain. Patient states pain began approximately 2 weeks ago is progressively worse pain described as cramping throughout the bilateral lower abdomen nothing makes the pain better or worse pain does not radiate. Denies any fevers or chills nausea vomiting or diarrhea. Patient does not take anything for the pain today Related Data Home Medications Medication Instructions Recorded Confirmed buarcd-[id number] 1 cap PO TIDWMEAL 11/19/20 12/28/21 36,000-114,000-180,000 unit capsule,delay rel cyanocobalamin (vitamin B-12) 1,000 mcg PO DAILY 02/20/21 12/28/21 1,000 mcg tablet cholecalciferol (vitamin D3) 50 50 mcg PO DAILY 10/05/21 12/28/21 mcg (2,000 unit) capsule mirabegron 50 mg tablet,extended 50 mg PO DAILY 12/28/21 12/28/21 release 24 hr (Myrbetriq) Allergies Allergy/AdvReac Type Severity Reaction Status Date / Time No Known Allergies Allergy Verified 12/28/21 11:14 Review of Systems Review of Systems: Gen.: Denies fevers or chills ENT: Denies congestion Respiratory: Denies shortness of breath or cough CV: See HPI denies burning, urgency, frequency or hematuria Musculoskeletal: Denies back pain or muscle pain Neuro: Denies numbness, tingling, weakness or focal weakness Skin: Denies rash Except as documented, all other systems reviewed and negative [facility] Past Medical History Medical History Chronic low back pain Chronic pancreatitis Diabetes type 2, uncontrolled GERD (gastroesophageal reflux disease) Hyperlipidemia Hypertension Paget's disease of skin of scrotum (~2017) Follows at [facility] Thyroid nodule Vitamin D deficiency Surgical History Surgical History History of prostate surgery (~02/24/21) TURP Social History Social History Smoking status: Never smoker Alcohol intake: never Substance use: never Substance use type: does not use Gender identity (if verbalized by the patient): Male Sexual Orientation (if Verbalized by the Patient): Straight or Heterosexual Spiritual care concerns: No Agree to blood products: Yes Exam Narrative: APPEARANCE: No acute distress, nontoxic, resting in bed HEENT: Normocephalic, atraumatic, OMM RESPIRATORY: No respiratory distress, clear to auscultation bilaterally with no rhonchi wheezing or rales CARDIOVASCULAR: RRR s murmur ABDOMINAL: Soft nondistended tender palpation right lower quadrant left lower quadrant no tenderness right upper quadrant left or quadrant no rebound or guarding MUSCULOSKELETAl: Moves all extremities. No clubbing, cyanosis or edema. NEURO: Awake and alert. Following commands, speech normal, no focal deficits SKIN:: Warm, dry. Normal Color PSYCHIATRIC: Normal affect/mood Course Course Emergency Course: Discussed with the patient's family states that the patient's GI physician just called in a stool softener for him Discussed with NAHOMY Prabhakar for Dr. Diaz presentation work-up agrees plan for discharge and follow-up as an outpatient. We did discuss the patient's cyst seen on CT and need for follow-up as ultrasound outpatient in agreement Patient states that they are feeling much better at this time. States abdominal pain h improved. Repeat abdominal exam shows the patient's abdomen to be soft and nontender. Discussed with patient results of workup and diagnosis. Discussed need for follow-up with primary care physician, reasons to return to the emergency department in proper use of medication. Patient understands and agrees to current treatment plan discussed with patient and janak
[2021-12-28] MEDS: SODIUM CHLORIDE 0.9% IV 1,000 ML 999 ML IV CONT (14:32)
[2021-12-28 15:34] VITALS: BP 161/95; PULSE 72; RESP 18; O2SAT 100
[2021-12-28 16:55] VITALS: BP 156/91; PULSE 79; RESP 18; O2SAT 100
== END 2021-12-28 16:57 | disposition home or self-care (01) ==
PROVIDERS: Emergency Provider Emergency Medicine; PCP Family Medicine
DX: R10.32 Left lower quadrant pain (principal); R10.31 Right lower quadrant pain; E11.9 Type 2 diabetes mellitus without complications; E78.5 Hyperlipidemia, unspecified; I10 Essential (primary) hypertension; E55.9 Vitamin D deficiency, unspecified; K86.1 Other chronic pancreatitis; Z79.84 Long term (current) use of oral hypoglycemic drugs
CPT/HCPCS: 36415; 74177; 80053; 81001; 83690; 85025; 96361; 96365; 99284; A9270; J0131; J7030; Q9967

== ENCOUNTER 2022-09-07 01:19 | Day surgery (SDC) | payer OTHER, SELFPAY ==
[2022-09-06 09:18] VITALS: BMI 25.0
--- NOTE | 2022-09-06 10:48 | PC.NURSE ---
Report to the Outpatient Waiting Room, entrance under the green pavilion located off [facility], at time __30 on date ___09/07/22____. Planned Procedure Time: ___929 . Time changes happen often and if your time is changed the preop area will call you the afternoon before. - You and your visitor will be asked to self-screen and do not enter if you have any COVID symptoms. - A mask is optional within the hospital at this time. Patients may have clear liquids (water, carbonated beverages, clear teas, apple juice) until 3 hours prior to surgery with a maximum of 20 ounces. - No food from midnight until time of surgery - Infants may have breast milk until 4 hours before surgery, infant formula 6 hours prior to surgery. - Children will be allowed to drink immediately following surgery. If applicable, please bring a bottle or sippy cup to assist with drinking. Juice, water, soda, and popsicles are readily available. For infants on formula, please bring formula the day of surgery. Pacifiers are allowed. Take the following medications with a SIP of water the morning of surgery: ___NONE DO NOT STOP ANY OF YOUR OTHER PRESCRIPTION MEDICATIONS PRIOR TO SURGERY ?EXCEPT THE FOLLOWING Medications to discontinue per physician ___ALL VITAMINS LAST DOSE 09/05/22 Date to take last dose Please no make-up, nail syrian, hairspray, perfume, deodorant, or body powder the day of surgery. No jewelry (including any body piercings) or valuables the day of surgery, leave them at home. Please take a shower or bath the night before, or the morning of, surgery with an antibacterial soap. Wear comfortable, loose fitting clothing. Children are encouraged to wear pajamas. - Jewelry must be removed prior to entering the operating room. Rings and piercings that are not removed may be cut off. - The hospital will not accept responsibility for valuables. - Please leave all valuables, including medications, at home the day of surgery. If you are going home after surgery, a licensed fast food delivery driver must drive you home. - NO public transportation without another adult if you receive anesthesia. - We recommend that an adult stay with you for 24 hours following discharge. - We also recommend that you do not drive, make important decision, drink alcoholic beverages, or take any drugs that were not prescribed by your health care provider for at least 24 hours after your discharge time. For Pediatric surgeries, we recommend two adults accompany the child home. Follow any additional instructions given to you from your surgeon. If you or anyone in your household have experienced Covid symptoms in the past week, please notify your surgeon or the nurse liaison at the phone number below for possible testing. Telephone instructions given to __PT'S DAUGHTER TODD and asked if any additional questions and then verbalized understanding. Patient advised to call surgeon office or pre surgery nurse liaison [phone] if any additional questions.
--- NOTE | 2022-09-06 13:01 | WPDANESEPPF ---
Anes - Initial Pre Proc Eval Procedure: Operation Date: 09/07/22 09:30 Proposed Procedures p Cystoscopy, Retrograde Urethrogram, Urethral Dilatation - Abraham Albert MD Date/Time: 09/06/22 13:01 Surgeon: Abraham Albert MD Pre Op Diagnosis: bph,stricture of urethra Patient Data Age: 76 Gender: M Height: 1.7 m Weight: 72.6 kg Allergies Allergy/AdvReac Type Severity Reaction Status Date / Time No Known Allergies Allergy Verified 09/07/22 07:38 Home Medications Medication Instructions Recorded Confirmed Type blood sugar diagnostic (Pharmacist #100 ea 01/22/21 12/28/21 Rx Choice Glucose Test Strips) blood-glucose meter (Blood Glucose #1 ea 01/22/21 12/28/21 Rx Monitoring kit) lancets (Fingerstix Lancets) #100 ea 01/22/21 12/28/21 Rx cyanocobalamin (vitamin B-12) 1,000 mcg PO DAILY 02/20/21 09/06/22 History 1,000 mcg tablet cetirizine 10 mg tablet (Zyrtec) 10 mg PO DAILY #30 tabs 08/05/21 09/06/22 Rx cholecalciferol (vitamin D3) 50 50 mcg PO DAILY 10/05/21 09/06/22 History mcg (2,000 unit) capsule atorvastatin 10 mg tablet 10 mg PO QHS #90 tabs 02/08/22 09/06/22 Rx glipizide 10 mg tablet, extended 10 mg PO DAILY #90 tabs 02/08/22 09/06/22 Rx release 24 hr losartan 25 mg tablet 25 mg PO DAILY #90 tabs 02/08/22 09/06/22 Rx metformin 1,000 mg tablet 1,000 mg PO BID #180 tabs 02/08/22 09/06/22 Rx pantoprazole 40 mg tablet,delayed 40 mg PO DAILY 09/06/22 09/06/22 History release Patient hx anesthesia problems: none Family hx anesthesia problems: none Results Review: All pre-operative results and documents have been reviewed as part of the pre-operative evaluation. [facility] Past Medical History Medical History Chronic low back pain Chronic pancreatitis Diabetes type 2, uncontrolled GERD (gastroesophageal reflux disease) Hyperlipidemia Hypertension Paget's disease of skin of scrotum (~2017) Follows at [facility] Thyroid nodule Vitamin D deficiency Surgical History Surgical History History of prostate surgery (~02/24/21) TURP Social History Social History Smoking packs per day: 0.5 Smoking cigarettes per day: 10.0 Years smoked: 20 Smoking pack-years: 10.00 Smoking status: Former smoker Tobacco type: cigarettes Smoking end date: 03/21/95 Alcohol intake: never Substance use: never Substance use type: does not use Living arrangements: with family Occupation/Education: retired Gender identity (if verbalized by the patient): Male Sexual Orientation (if Verbalized by the Patient): Straight or Heterosexual Spiritual care concerns: No Agree to blood products: Yes Anes - Eval Final PreProcedure Day of Procedure 09/06/22 13:01 Patient weight: overweight Heart: regular rate and rhythm Lungs: clear to auscultation Airway: Mallampati scale class II Neurological: alert and oriented Last oral intake: >/= 8 hours ASA classification: III Emergent: no Anesthetic plan: proceed Anesthesia type and monitoring: general LMA and standard monitoring Results Review: All pre-operative results and documents have been reviewed as part of the pre-operative evaluation. Informed Consent: The patient's anesthetic plan and its attendant risks and benefits were discussed with the patient/family/POA. Questions were solicited and answers provided to the satisfaction of the patient/family/POA.
[2022-09-07] VITALS (8 sets, daily range): BP systolic 140–165; BP diastolic 78–98; PULSE 66–75; RESP 11–16; TEMP 36.1–36.5; O2SAT 96–100
--- NOTE | ~2022-09-07 | XR_ITS ---
EXAMINATION: XR urethrocystogram DATE: 09/07/2022 10:09 INDICATION: Retrograde urethrogram TECHNIQUE: 5 fluoroscopic images of the pelvis were obtained during retrograde urethrocystogram by Dr Tammy Albert. Radiologist was not present for the imaging or procedure. See procedure note for further detail. The amount of fluoroscopy time used during this procedure was 0.5 minutes. COMPARISON: None. FINDINGS: There is a tight stricture at the level of the prostatic urethra. Contrast fills the bladde r with normal internal mucosal contour. Subsequent images demonstrate a wire advanced through the ure thra into the bladder and subsequently a urethral dilator passed over the wire into the bladder. IMPRESSION: 1. Tight stricture at the level of the prostatic urethra with fluoroscopy utilized for subsequent ure thral dilation. See procedure note for further detail. Reviewed, dictated and finalized at location A. IMPRESSION: 1. Tight stricture at the level of the prostatic urethra with fluoroscopy utili zed for subsequent urethral dilation. See procedure note for further detail.
--- NOTE | 2022-09-07 05:53 | ECG_ITS ---
Measurements Intervals [place] Rate: 69 P: 33 WI: 175 QRS: -75 QRSD: 117 T: 12 QT: 369 QTc: 398 Interpretive Statements SINUS RHYTHM MARKED LEFT AXIS DEVIATION [QRS AXIS < -30] INCOMPLETE RIGHT BUNDLE BRANCH BLOCK [90+ ms QRS DURATION, TERMINAL R IN V1/V2, 40+ ms S IN I/aVL/V4/V5/V6] COMPARED TO ECG 02/20/2021 09:27:56 NO SIGNIFICANT CHANGES Electronically Signed On 09-07-2022 16:16:37 CDT by Junaid Tierney M.D.
--- NOTE | 2022-09-07 07:32 | WPDHPUPDATE1 ---
History and Physical Update Update Date/Time: 09/07/22 07:32 History and Physical has been reviewed, including an updated exam of the patient. There are NO changes in the patient's condition. Risks, benefits, and alternatives have been discussed and questions answered. Patient agrees to proceed with procedure.
--- NOTE | 2022-09-07 08:18 | SUR.PREOP ---
Concent done using stratus.
[2022-09-07] MEDS: LACTATED RINGERS 1,000 ML 30 ML IV CONT (08:20)
[2022-09-07 08:25] LABS: Anion Gap 8 mmol/L (8-16); Blood Urea Nitrogen 17 mg/dL (9-20); Calcium 8.7 mg/dL (8.4-10.2); Carbon Dioxide 32 mmol/L (22-30); Chloride 102 mmol/L (98-107); Estimated CRCL calculation 63 ml/min; Estimated Glomerular Filt Rate > 60; Glucose 74 mg/dL (65-110); Potassium 3.6 mmol/L (3.4-5.0); Sodium 142 mmol/L (137-145)
[2022-09-07] MEDS: ceFAZolin 2 GM/D5W 50 ML 2 GM/50 ML BAG IVPB (09:27)
[2022-09-07] MEDS: LIDOCAINE HCL 2% GEL UROJET 10 ML PKG MUCOUS MEM (09:37)
--- NOTE | 2022-09-07 10:10 | P.OP_ITS ---
Procedure Note - Detailed Date of Procedure 09/07/22 Pre-op Diagnosis bph,stricture of urethra Post-op Diagnosis Same (Prostatic urethral lesion at vera) Procedure Performed Retrograde urethrogram, urethral dilation to 22 [place], cystoscopy, biopsy of prostatic urethra with fulguration, complex Neal catheter placement Surgeon Abraham Albert MD Anesthesia General Description of Procedure Patient is taken to the operative suite and correctly identified. Once anesthesia was obtained he was placed in dorsal lithotomy position and prepped draped usual sterile fashion. Nineteen [place] scope was inserted in the meatus. He has a membranous urethral stricture. Red rubber catheter was then inserted into the meatus and a retrograde urethrogram was performed. It appeared to be about a cm in length. Contrast made its way into the bladder. Guidewire was inserted into the bladder. I then dilated up to 20 2 [place]. It was extremely tight at this point. Cystoscopy was then performed. There were no other strictures noted proximally. His prostatic urethra at the vera had these little papillary fronds. Using a cold cup biopsy we biopsied these. I then fulgurated this area using a Bugbee electrode. There was no significant obstruction from the prostate. He did have slightly elevated median bar. The bladder itself was without any evidence of tumors. Bladder was drained. 2% viscous lidocaine was inserted into the urethra. Eighteen [place] tip was then passed over the wire into the bladder and inflated with 10 cc of sterile water. Patient is taken recovery stable condition. Will plan on Neal catheter removal on Tuesday minimal bleeding otherwise Tuesday. Will personally see him in 2-3 weeks time. This completes dictation. Please send a copy of this operative note to my office Estimated Blood Loss 0 Drains Yes Packing No Pathology Yes Complications No immediate complications Condition Stable Disposition PACU
[2022-09-07 10:24] LABS: Glucose Point of Care 75 mg/dl (65-105)
--- NOTE | 2022-09-07 11:02 | SUR.PHASEI ---
6620- SPOKE WITH TODD WATER JET LOOM FIXER ON [employer]. PT DENIES PAIN OR NAUSEA. ALL QUESTIONS ANSWERED. UPDATED PT THAT WE ARE MOVING TO THE NEXT PHASE OF RECOVERY.
== END 2022-09-07 12:20 | disposition home or self-care (01) ==
PROVIDERS: Anesthesiology; PCP Family Medicine; Visit Provider Urology
PROC: 0T7D8ZZ Dilation of Urethra, Via Natural or Artificial Opening Endoscopic (ICD-10-PCS; CPT 52281; principal; 2022-09-07 09:30)
DX: N40.0 Benign prostatic hyperplasia without lower urinary tract symptoms (principal); N35.913 Unspecified membranous urethral stricture, male; N36.2 Urethral caruncle; I10 Essential (primary) hypertension; E78.5 Hyperlipidemia, unspecified; E11.9 Type 2 diabetes mellitus without complications; K86.1 Other chronic pancreatitis; K21.9 Gastro-esophageal reflux disease without esophagitis; E55.9 Vitamin D deficiency, unspecified; Z87.891 Personal history of nicotine dependence; Z79.84 Long term (current) use of oral hypoglycemic drugs
CPT/HCPCS: 52204; 36415; 51610; 74450; 80048; 82948; 88305; 93005; C1726; C1769; J0690; J1100; J2405; J2704; J3010; J7120; Q9966

== ENCOUNTER 2023-01-11 09:23 | Outpatient (CLI) | payer OTHER, SELFPAY ==
[2023-01-11 14:15] LABS: Alanine Aminotransferase 77 U/L (6-50); Albumin Level 4.7 g/dL (3.5-5.1); Alkaline Phosphatase 57 U/L (38-126); Anion Gap 6 mmol/L (8-16); Aspartate Amino Transferase 58 U/L (17-59); Bilirubin,Total 0.7 mg/dL (0.2-1.3); Blood Urea Nitrogen 14 mg/dL (9-20); Calcium 9.8 mg/dL (8.4-10.2); Carbon Dioxide 33 mmol/L (22-30); Chloride 99 mmol/L (98-107); Estimated Glomerular Filt Rate > 60; Glucose 91 mg/dL (65-110); Potassium 4.1 mmol/L (3.4-5.0); Sodium 138 mmol/L (137-145)
[2023-01-11 14:42] LABS: Prostate Specific Antigen 3.3 ng/mL (< OR = 4.0)
[2023-01-11 15:21] LABS: Hemoglobin A1C 7.2 % (<5.7)
== END 2023-01-11 09:24 | disposition home or self-care (01) ==
LOC: ANHGOSHLAB 09:24
PROVIDERS: PCP Family Medicine; Visit Provider Family Medicine
DX: Z12.5 Encounter for screening for malignant neoplasm of prostate (principal); R97.20 Elevated prostate specific antigen [PSA]; E11.9 Type 2 diabetes mellitus without complications; I10 Essential (primary) hypertension
CPT/HCPCS: 36415; 80053; 83036; 84153; G0103

== ENCOUNTER 2023-06-13 09:49 | Outpatient (CLI) | payer OTHER, SELFPAY ==
[2023-06-13 14:00] LABS: Alanine Aminotransferase 105 U/L (6-50); Albumin Level 4.3 g/dL (3.5-5.1); Alkaline Phosphatase 71 U/L (38-126); Anion Gap 6 mmol/L (8-16); Aspartate Amino Transferase 115 U/L (17-59); Bilirubin,Total 0.8 mg/dL (0.2-1.3); Blood Urea Nitrogen 12 mg/dL (9-20); Carbon Dioxide 32 mmol/L (22-30); Chloride 102 mmol/L (98-107); Estimated Glomerular Filt Rate > 60; Glucose 261 mg/dL (65-110); Potassium 4.3 mmol/L (3.4-5.0); Sodium 140 mmol/L (137-145)
[2023-06-13 15:04] LABS: Vitamin D 25 Hydroxy 81.6 ng/mL
[2023-06-13 22:43] LABS: Hemoglobin A1C 8.9 % (<5.7)
== END 2023-06-13 09:50 | disposition home or self-care (01) ==
LOC: ANHGOSHLAB 09:50
PROVIDERS: PCP Family Medicine; Visit Provider Family Medicine
DX: E11.9 Type 2 diabetes mellitus without complications (principal); E55.9 Vitamin D deficiency, unspecified; I10 Essential (primary) hypertension
CPT/HCPCS: 36415; 80053; 82306; 83036

== ENCOUNTER 2023-09-11 00:58 | Emergency (ER) | payer OTHER, SELFPAY ==
--- NOTE | ~2023-09-11 | CT_ITS ---
EXAMINATION: CT abdomen pelvis w con DATE: 09/11/2023 03:07 INDICATION: Abdominal pain. Gastrointestinal bleed. TECHNIQUE: Computed tomography (CT) of the abdomen and pelvis was performed with 100 mL Omnipaque-350 intravenous contrast. Automated exposure control and iterative reconstruction technique were employe d. The dose-length product was 423.81 mGy-cm. COMPARISON: 12/28/2021 FINDINGS: Mild dependent atelectasis in bilateral lower lobes. Heart size is normal. No pericardial or pleural effusion. Liver, gallbladder, spleen and bilateral adrenal glands are normal. 4 mm macroscopic fat at tenuation lipoma the head of the pancreas along with a dystrophic calcific a bladder likely sequela o f chronic pancreatitis. 8 mm exophytic enhancing nodule at the upper pole the left kidney consistent with renal cell carcinoma. 8 mm relatively low-attenuation lesion at the upper pole the right kidney which is slightly greater than simple fluid attenuation. 2 additional <5 mm low-attenuation right essie al lesions most likely renal cyst but too small to definitively characterize. Bowels including the ap pendix are normal. Bladder is normal. Prostatomegaly. No free intraperitoneal gas or fluid. No pathol ogically enlarged abdominal or pelvic lymphadenopathy. Mild lower lumbar levocurvature with moderate spondylosis. Unchanged 1.5 cm likely right epididymal cyst. IMPRESSION: 1. No acute intra-abdominal/pelvic process. 2. 8 mm enhancing exophytic nodule at the upper pole the left kidney consistent with renal cell carci noma. There is a second 8 mm slightly greater than simple fluid attenuation lesion at the right kidne y most likely proteinaceous/hemorrhagic cyst but could consider pre and postcontrast MRI or CT to exc lude second enhancing renal cell carcinoma. Reviewed, dictated and finalized at location A. IMPRESSION: 1. No acute intra-abdominal/pelvic process. 2. 8 mm enhancing exophytic nodule at the upper pole the left kidney consistent with renal cell carcinoma. There is a second 8 mm slightly greater than simple fluid attenuation lesion at the right kidney most likely proteinaceous/hemorrh agic cyst but could consider pre and postcontrast MRI or CT to exclude second e nhancing renal cell carcinoma.
[2023-09-11 01:03] VITALS: BP 143/87; PULSE 83; RESP 15; TEMP 36; O2SAT 97
[2023-09-11] MEDS: SODIUM CHLORIDE 0.9% IV 1,000 ML 999 ML IV CONT (02:10)
[2023-09-11] MEDS: ONDANSETRON INJ 4 MG/2 ML VIAL IV PUSH (02:10)
[2023-09-11 02:11] VITALS: BP 128/73; PULSE 72; RESP 17; O2SAT 99
[2023-09-11 02:14] LABS: Basophils Absolute Auto 0.1 K/mm3 (0.0-0.1); Basophils Percent Auto 0.6 % (0.2-1.2); Eosinophils Absolute Auto 0.4 K/mm3 (0-0.3); Eosinophils Percent Auto 4.4 % (0-4.4); Hematocrit 44.8 % (42.0-52.0); Hemoglobin 15.1 g/dL (14.0-18.0); Immature Granulocyte Absolute 0.06 K/mm3 (0.00-0.031); Immature Granulocyte Percent A 0.7 % (0-0.5); Lymphocytes Absolute Auto 1.72 K/mm3 (0.9-3.2); Lymphocytes Percent Auto 20.5 % (18.3-44.2); Mean Corpuscular HGB Conc 33.7 g/dl (32-36); Mean Corpuscular Hemoglobin 30.2 pg (26-34); Mean Corpuscular Volume 89.6 fl (80-100); Mean Platelet Volume 9.2 fl (7.4-10.4); Monocytes Absolute Auto 0.8 K/mm3 (0.1-0.6); Monocytes Percent Auto 9.5 % (2.6-8.5); Neutrophils Absolute Auto 5.4 K/mm3 (1.3-6.7); Neutrophils Percent Auto 64.3 % (45.5-73.1); Platelet Count Result 199 k/mm3 (150-375); Red Cell Distribution Width 13.5 % (11.5-14.5); White Blood Count 8.4 K/mm3 (4.5-10.0)
[2023-09-11 02:24] LABS: Alanine Aminotransferase 80 U/L (6-50); Albumin Level 4.2 g/dL (3.5-5.1); Alkaline Phosphatase 58 U/L (38-126); Anion Gap 8 mmol/L (4-12); Aspartate Amino Transferase 39 U/L (17-59); Bilirubin,Total 0.5 mg/dL (0.2-1.3); Blood Urea Nitrogen 12 mg/dL (9-20); Calcium 9.1 mg/dL (8.4-10.2); Carbon Dioxide 29 mmol/L (22-30); Chloride 102 mmol/L (98-107); Estimated CRCL calculation 58 ml/min; Estimated Glomerular Filt Rate > 60; Glucose 265 mg/dL (65-110); Lactic Acid Reflex 2.9 mmol/L (0.7-2.0); Lipase 202 U/L (23-300); Potassium 3.9 mmol/L (3.4-5.0); Sodium 139 mmol/L (137-145)
[2023-09-11] MEDS: PANTOPRAZOLE SODIUM IV 80 MG in SODIUM CHLORIDE 0.9% IV 500 ML 50 MG IV CONT (02:35)
[2023-09-11 02:40] LABS: INR 0.9; Prothrombin Time 12.7 Seconds (11.1-14.7)
[2023-09-11 05:12] LABS: Reflex Lactic Acid Yes or No Add Lactic
--- NOTE | 2023-09-11 05:15 | ED.GENADULT ---
HPI - General Adult General Chief complaint: GI Bleed Stated complaint: bloody stool Time Seen by Provider: 09/11/23 01:52 History of Present Illness HPI narrative: Patient 77-year-old gentleman presents emergency department chief complaint of bloody stool. Patient reports has had some loose stool and reported that he has had some blood in his stool had 2 episodes today. Patient denies syncope denies chest pain denies abdominal pain Related Data Home Medications Medication Instructions Recorded Confirmed cholecalciferol (vitamin D3) 125 125 mcg PO .QOD 06/13/23 06/13/23 mcg (5,000 unit) capsule tamsulosin 0.4 mg capsule 0.4 mg PO QHS 06/13/23 06/13/23 Allergies Allergy/AdvReac Type Severity Reaction Status Date / Time No Known Allergies Allergy Verified 09/11/23 01:07 Review of Systems Review of Systems: A 10 system review of systems was completed on the patient and is negative except for what is stated in the HPI. Nursing and ancillary documentation was reviewed. [facility] Past Medical History Medical History Chronic low back pain Chronic pancreatitis Diabetes type 2, uncontrolled Environmental allergies GERD (gastroesophageal reflux disease) Hyperlipidemia Hypertension Paget's disease of skin of scrotum (~2016) Follows at [facility] Thyroid nodule Type 2 diabetes mellitus without complications Vitamin D deficiency Surgical History Surgical History History of prostate surgery (~02/24/21) TURP S/P cystourethroscopy with dilation of urethral stricture (~08/2022) Social History Social History Smoking packs per day: 0.5 Smoking cigarettes per day: 10.0 Years smoked: 20 Smoking pack-years: 10.00 Smoking status: Former smoker Tobacco type: cigarettes Smoking end date: 03/21/01 Alcohol intake: never Substance use: never Substance use type: does not use Living arrangements: with family Occupation/Education: retired Gender identity (if verbalized by the patient): Male Sexual Orientation (if Verbalized by the Patient): Straight or Heterosexual Spiritual care concerns: No Agree to blood products: Yes Exam Narrative: GENERAL: Well-appearing, well-nourished, and in no acute distress. HEAD: Normocephalic, atraumatic. EYES: PERRLA and EOMI. ENT: Nares clear, no rhinorrhea or epistaxis. Mucous membranes moist. NECK: Supple. CHEST: Clear to auscultation. No respiratory distress. HEART: Regular rate and rhythm. No murmur heard. Normal peripheral pulses. ABDOMEN: Soft, nontender, nondistended, normal active bowel sounds. : Guaiac-positive stool EXTREMITIES: Normal range of motion. No edema. SKIN: Warm, dry, no rash. NEURO: No focal deficits. Alert and oriented x3. PSYCH: Normal mood and affect. Course Vital Signs Vital signs: Vital Signs Temperature 36.0 C L 09/11/23 01:03 Pulse Rate 83 09/11/23 01:03 Respiratory Rate 15 09/11/23 01:03 Blood Pressure 143/87 H 09/11/23 01:03 Pulse Oximetry 97 09/11/23 01:03 Oxygen Delivery Room Air 09/11/23 01:03 Temperature 36.0 C L 09/11/23 01:03 Pulse Rate 72 09/11/23 02:11 Respiratory Rate 17 09/11/23 02:11 Blood Pressure 128/73 09/11/23 02:11 Pulse Oximetry 99 09/11/23 02:11 Oxygen Delivery Room Air 09/11/23 01:03 Medical Decision Making [facility] Narrative Medical decision making narrative: Differential diagnosis includes diverticulitis, colitis, intra-abdominal infection, GI bleed Laboratory studies were obtained on the patient showed a hemoglobin of 15.1 electrolytes are within normal limits CT scan of the abdomen pelvis showed no acute abnormality Vital Signs Vital Signs: Vital Signs Temperature 36.0 C L 09/11/23 01:03 Pulse Rate 83 09/11/23 01:03 Respiratory Rate 15
[2023-09-11 05:31] VITALS: BP 134/84; PULSE 70; RESP 17; O2SAT 95
== END 2023-09-11 05:33 | disposition home or self-care (01) ==
PROVIDERS: Emergency Provider Emergency Medicine; PCP Family Medicine
DX: K92.2 Gastrointestinal hemorrhage, unspecified (principal); E78.5 Hyperlipidemia, unspecified; I10 Essential (primary) hypertension; E11.9 Type 2 diabetes mellitus without complications; Z87.891 Personal history of nicotine dependence
CPT/HCPCS: 36415; 74177; 80053; 83605; 83690; 85025; 85610; 85730; 86850; 86900; 86901; 96365; 96366; 96375; 99284; C9113; J2405; J7030; J7040; Q9967

== ENCOUNTER 2023-09-26 16:04 | Outpatient (CLI) | payer OTHER, SELFPAY ==
--- NOTE | ~2023-09-26 | MR_ITS ---
EXAMINATION: MR abdomen wo/w con DATE: 09/26/2023 17:08 INDICATION: Other specified disorders of the kidneys and ureter. Left kidney mass. TECHNIQUE: Magnetic resonance imaging (MRI) of the abdomen was performed without and with 14 mL Multi Luz Elena intravenous contrast. COMPARISON: CT abdomen and pelvis 09/11/2023 FINDINGS: There is diffuse hepatic steatosis. There is a 5 mm cyst in the liver. The gallbladder is normal in s ize. The spleen, pancreas, and adrenal glands are normal. There are cysts and hemorrhagic cysts in th e kidneys measuring up to 8 mm on the left. There are no dilated loops of bowel. There are no patholo gically enlarged lymph nodes. There is no free intraperitoneal fluid. IMPRESSION: 1. Benign cysts in the kidneys. Reviewed, dictated and finalized at location E.
== END 2023-09-26 16:05 | disposition home or self-care (01) ==
PROVIDERS: PCP Family Medicine; Visit Provider Nurse Practitioner Family
DX: N28.1 Cyst of kidney, acquired (principal)
CPT/HCPCS: 74183; A9577

== ENCOUNTER 2023-11-01 12:40 | Outpatient (CLI) | payer OTHER, SELFPAY ==
[2023-11-01 19:17] LABS: Basophils Absolute Auto 0.1 K/mm3 (0.0-0.1); Basophils Percent Auto 1.1 % (0.2-1.2); Eosinophils Absolute Auto 0.6 K/mm3 (0-0.3); Eosinophils Percent Auto 8.5 % (0-4.4); Hematocrit 44.8 % (42.0-52.0); Hemoglobin 15.2 g/dL (14.0-18.0); Immature Granulocyte Absolute 0.01 K/mm3 (0.00-0.031); Immature Granulocyte Percent A 0.2 % (0-0.5); Lymphocytes Absolute Auto 1.98 K/mm3 (0.9-3.2); Lymphocytes Percent Auto 30.2 % (18.3-44.2); Mean Corpuscular HGB Conc 33.9 g/dl (32-36); Mean Corpuscular Hemoglobin 31.1 pg (26-34); Mean Corpuscular Volume 91.8 fl (80-100); Mean Platelet Volume 9.7 fl (7.4-10.4); Monocytes Absolute Auto 0.6 K/mm3 (0.1-0.6); Monocytes Percent Auto 9.3 % (2.6-8.5); Neutrophils Absolute Auto 3.3 K/mm3 (1.3-6.7); Neutrophils Percent Auto 50.7 % (45.5-73.1); Platelet Count Result 229 k/mm3 (150-375); Red Blood Count 4.88 M/mm3 (4.6-6.20); Red Cell Distribution Width 13.4 % (11.5-14.5); White Blood Count 6.6 K/mm3 (4.5-10.0)
[2023-11-01 19:39] LABS: Alanine Aminotransferase 84 U/L (6-50); Albumin Level 4.2 g/dL (3.5-5.1); Alkaline Phosphatase 59 U/L (38-126); Anion Gap 10 mmol/L (4-12); Aspartate Amino Transferase 58 U/L (17-59); Bilirubin,Total 0.8 mg/dL (0.2-1.3); Blood Urea Nitrogen 17 mg/dL (9-20); Calcium 9.6 mg/dL (8.4-10.2); Carbon Dioxide 30 mmol/L (22-30); Chloride 100 mmol/L (98-107); Cholesterol 122 mg/dL (0-200); Estimated Glomerular Filt Rate > 60; Glucose 101 mg/dL (65-110); HDL Direct 38 mg/dL; Sodium 140 mmol/L (137-145); Triglycerides 90 mg/dL (<150)
[2023-11-01 19:50] LABS: LDL Cholesterol Direct 63 mg/dL
[2023-11-01 19:51] LABS: Vitamin D 25 Hydroxy 96.9 ng/mL
[2023-11-01 20:09] LABS: Prostate Specific Antigen 3.2 ng/mL (< OR = 4.0)
[2023-11-01 20:25] LABS: Thyroid Stimulating Hormone Reflex 0.574 uIU/mL (0.465-4.68)
[2023-11-01 20:30] LABS: Vitamin B12 > 1000.0 pg/mL (239-931)
[2023-11-01 20:43] LABS: MALB Creatinine Ratio 40.3 mg/g (0-30); Microalbumin Urine Random 69.4 mg/L (0-16.7)
[2023-11-01 20:50] LABS: Hemoglobin A1C 8.4 % (<5.7)
== END 2023-11-01 12:41 | disposition home or self-care (01) ==
LOC: ANHGOSHLAB 12:41
PROVIDERS: PCP Family Medicine; Visit Provider Family Medicine
DX: K21.9 Gastro-esophageal reflux disease without esophagitis (principal); Z00.00 Encounter for general adult medical examination without abnormal findings; E78.5 Hyperlipidemia, unspecified; I10 Essential (primary) hypertension; Z12.5 Encounter for screening for malignant neoplasm of prostate; E11.9 Type 2 diabetes mellitus without complications; E53.8 Deficiency of other specified B group vitamins; E55.9 Vitamin D deficiency, unspecified
CPT/HCPCS: 36415; 80053; 80061; 82043; 82306; 82607; 83036; 84153; 84443; 85025; G0103

== ENCOUNTER 2023-12-07 09:08 | Outpatient (CLI) | payer OTHER, SELFPAY ==
--- NOTE | ~2023-12-07 | US_ITS ---
Renal-Bladder ultrasound Clinical History: Renal cysts Technique: Real-time sonographic imaging of the kidneys and urinary bladder was performed. Findings: The right kidney measures 11.4 cm in length and the left kidney measures 11.5 cm. There is no hydronephrosis or renal calculus identified. Renal cortical echogenicity is within normal limits. No renal mass lesion is identified. The urinary bladder is moderately distended at the time of this exam. No intraluminal echoes are iden tified. No abnormal wall thickening is seen. Prostate gland enlarged. Impression: Unremarkable ultrasound of the kidneys and urinary bladder. Enlarged prostate gland. Reviewed, dictated and finalized at location . Impression: Unremarkable ultrasound of the kidneys and urinary bladder. Enlarged prostate gland.
== END 2023-12-07 09:09 | disposition home or self-care (01) ==
LOC: GOSHIMG 09:09
PROVIDERS: PCP Internal Medicine Nephrology; Visit Provider Internal Medicine Nephrology
DX: N28.1 Cyst of kidney, acquired (principal); N40.0 Benign prostatic hyperplasia without lower urinary tract symptoms
CPT/HCPCS: 76775

== ENCOUNTER 2023-12-27 09:30 | Outpatient (CLI) | payer OTHER, SELFPAY ==
[2023-12-27 14:00] LABS: Basophils Absolute Auto 0.1 K/mm3 (0.0-0.1); Basophils Percent Auto 1.1 % (0.2-1.2); Eosinophils Absolute Auto 0.5 K/mm3 (0-0.3); Eosinophils Percent Auto 6.1 % (0-4.4); Hemoglobin 16.1 g/dL (14.0-18.0); Immature Granulocyte Absolute 0.04 K/mm3 (0.00-0.031); Immature Granulocyte Percent A 0.5 % (0-0.5); Lymphocytes Absolute Auto 1.86 K/mm3 (0.9-3.2); Lymphocytes Percent Auto 25.1 % (18.3-44.2); Mean Corpuscular HGB Conc 32.2 g/dl (32-36); Mean Corpuscular Volume 93.1 fl (80-100); Mean Platelet Volume 10.1 fl (7.4-10.4); Monocytes Absolute Auto 0.8 K/mm3 (0.1-0.6); Monocytes Percent Auto 10.3 % (2.6-8.5); Neutrophils Absolute Auto 4.2 K/mm3 (1.3-6.7); Neutrophils Percent Auto 56.9 % (45.5-73.1); Platelet Count Result 249 k/mm3 (150-375); Red Blood Count 5.37 M/mm3 (4.6-6.20); Red Cell Distribution Width 13.2 % (11.5-14.5); White Blood Count 7.4 K/mm3 (4.5-10.0)
[2023-12-27 14:13] LABS: Prothrombin Time 13.3 Seconds (11.1-14.7)
[2023-12-27 14:38] LABS: Alanine Aminotransferase 85 U/L (6-50); Albumin Level 4.8 g/dL (3.5-5.1); Alkaline Phosphatase 58 U/L (38-126); Anion Gap 11 mmol/L (4-12); Aspartate Amino Transferase 79 U/L (17-59); Bilirubin,Total 0.7 mg/dL (0.2-1.3); Blood Urea Nitrogen 13 mg/dL (9-20); Calcium 9.3 mg/dL (8.4-10.2); Carbon Dioxide 28 mmol/L (22-30); Chloride 101 mmol/L (98-107); Estimated Glomerular Filt Rate > 60; Glucose 98 mg/dL (65-110); Potassium 3.8 mmol/L (3.4-5.0); Sodium 140 mmol/L (137-145)
[2023-12-27 15:23] LABS: Iron 167 ug/dL (49-181)
[2023-12-27 15:33] LABS: Percent Iron Saturation 48 % (20-50)
[2023-12-27 15:43] LABS: Hepatitis B Surface Antigen Negative (Negative)
[2023-12-27 15:49] LABS: HAV RESULT Negative (Negative); Hepatitis B Core IgM Result Negative (Negative)
[2023-12-27 16:01] LABS: Hepatitis C Virus Antibody Negative (Negative)
[2023-12-29 12:19] LABS: Ceruloplasmin 18 mg/dL (14-30)
[2024-01-02 01:53] LABS: Mitochondrial (M2) Ab (IgG) <20.0 U
== END 2023-12-27 09:31 | disposition home or self-care (01) ==
PROVIDERS: PCP Family Medicine
DX: K76.9 Liver disease, unspecified (principal)
CPT/HCPCS: 36415; 80053; 80074; 82104; 82105; 82390; 82728; 83520; 83540; 83550; 85025; 85610; 86038; 86039; 86364

== ENCOUNTER 2024-05-21 10:05 | Outpatient (CLI) | payer OTHER, SELFPAY | END 2024-05-21 10:06 | disposition home or self-care (01) | LOC: GOSHIMG 10:06 | PROVIDERS: PCP Family Medicine; Visit Provider Family Medicine | DX: R09.89 Other specified symptoms and signs involving the circulatory and respiratory systems (principal) | CPT/HCPCS: 71046 ==

== ENCOUNTER 2024-05-21 10:15 | Outpatient (CLI) | payer OTHER, SELFPAY ==
[2024-05-21 15:04] LABS: Alanine Aminotransferase 91 U/L (6-50); Albumin Level 4.5 g/dL (3.5-5.1); Alkaline Phosphatase 61 U/L (38-126); Anion Gap 13 mmol/L (4-12); Aspartate Amino Transferase 77 U/L (17-59); Bilirubin,Total 0.6 mg/dL (0.2-1.3); Blood Urea Nitrogen 8 mg/dL (9-20); Calcium 9.8 mg/dL (8.4-10.2); Carbon Dioxide 29 mmol/L (22-30); Chloride 100 mmol/L (98-107); Estimated Glomerular Filt Rate > 60; Glucose 156 mg/dL (65-110); Potassium 3.9 mmol/L (3.4-5.0); Sodium 142 mmol/L (137-145)
[2024-05-21 16:35] LABS: Creatinine Urine 82.8 mg/dL; Total Protein Urine Random 74 mg/dL; Ur Ttl Prot Creatinine Ratio 0.89 mg/mg (0-0.20)
[2024-05-21 18:28] LABS: Hemoglobin A1C 8.2 % (<5.7)
== END 2024-05-21 10:16 | disposition home or self-care (01) ==
LOC: ANHGOSHLAB 10:16
PROVIDERS: Internal Medicine Nephrology; PCP Family Medicine; Visit Provider Family Medicine
DX: I10 Essential (primary) hypertension (principal); E55.9 Vitamin D deficiency, unspecified; E11.9 Type 2 diabetes mellitus without complications; N28.1 Cyst of kidney, acquired
CPT/HCPCS: 36415; 80053; 82306; 82570; 83036; 84156

== ENCOUNTER 2024-12-10 08:39 | Outpatient (CLI) | payer OTHER, SELFPAY ==
[2024-12-10 13:02] LABS: Alanine Aminotransferase 88 U/L (6-50); Albumin Level 4.3 g/dL (3.5-5.1); Alkaline Phosphatase 62 U/L (38-126); Anion Gap 7 mmol/L (4-12); Aspartate Amino Transferase 95 U/L (17-59); Bilirubin,Total 0.7 mg/dL (0.2-1.3); Blood Urea Nitrogen 9 mg/dL (9-20); Calcium 9.0 mg/dL (8.4-10.2); Carbon Dioxide 31 mmol/L (22-30); Chloride 102 mmol/L (98-107); Cholesterol 123 mg/dL (0-200); Estimated Glomerular Filt Rate > 60; Glucose 104 mg/dL (65-110); HDL Direct 39 mg/dL; Potassium 4.3 mmol/L (3.4-5.0); Sodium 140 mmol/L (137-145); Total Protein 7.5 g/dL (6.3-8.2); Triglycerides 119 mg/dL (<150)
[2024-12-10 13:08] LABS: Hematocrit 47.8 % (42.0-52.0); Hemoglobin 15.9 g/dL (14.0-18.0); Immature Granulocyte Percent A 0.4 % (0-0.5); Lymphocytes Absolute Auto 1.87 K/mm3 (0.9-3.2); Mean Corpuscular HGB Conc 33.3 g/dl (32-36); Mean Corpuscular Hemoglobin 30.1 pg (26-34); Mean Corpuscular Volume 90.5 fl (80-100); Nucleated Red Blood Cells Absolute Auto 0.000 K/mm3 (0.0-0.012); Nucleated Red Blood Cells Perc 0.0 % (0.0-0.2); Platelet Count Result 237 k/mm3 (150-375); Red Blood Count 5.28 M/mm3 (4.6-6.20); White Blood Count 7.4 K/mm3 (4.5-10.0)
[2024-12-10 13:38] LABS: Prostate Specific Antigen 3.4 ng/mL (< OR = 4.0)
[2024-12-10 13:41] LABS: Thyroid Stimulating Hormone Reflex 1.540 uIU/mL (0.465-4.68)
[2024-12-10 13:57] LABS: Vitamin B12 997.0 pg/mL (239-931)
[2024-12-10 14:03] LABS: MALB Creatinine Ratio 137.2 mg/g (0-30)
[2024-12-10 14:34] LABS: Hemoglobin A1C 8.5 % (<5.7)
== END 2024-12-10 08:40 | disposition home or self-care (01) ==
PROVIDERS: PCP Family Medicine; Visit Provider Family Medicine
DX: E78.5 Hyperlipidemia, unspecified (principal); E11.9 Type 2 diabetes mellitus without complications; E53.8 Deficiency of other specified B group vitamins; I10 Essential (primary) hypertension; Z00.00 Encounter for general adult medical examination without abnormal findings; E55.9 Vitamin D deficiency, unspecified; Z12.5 Encounter for screening for malignant neoplasm of prostate
CPT/HCPCS: 36415; 80053; 80061; 82043; 82306; 82607; 83036; 84153; 84443; 85025; G0103

== ENCOUNTER 2024-12-18 17:04 | Emergency (ER) | payer OTHER, SELFPAY ==
--- NOTE | ~2024-12-18 | XR_ITS ---
Examination: XR chest 2V Clinical History: cardiac hx Comparison: 05/21/2024 Technique: PA and Lateral Findings: Cardiomediastinal silhouette normal size and configuration. Lungs clear. No acute bony abnormality. IMPRESSION: 1. No acute cardiopulmonary findings. Reviewed, dictated and finalized at location R.
--- NOTE | ~2024-12-18 | CT_ITS ---
CT HEAD NON-CONTRAST Clinical History: dizziness, visual changes Comparison: None Technique: Unenhanced axial images skull base to vertex Coronal, sagittal reformats CT images acquired with automatic exposure control for dose reduction DLP: 757 mGy-cm Findings: Mild white matter changes from chronic microvascular ischemic disease. Left caudate lacune. Sulci, ventricles: Unremarkable. No intracerebral hemorrhage. No evidence acute territorial infarct. No mass effect, midline shift. Bony calvarium intact. Visualized paranasal sinuses: Mild ethmoid mucosal thickening. Mastoid air cells: Clear. IMPRESSION: 1. No acute intracranial findings. Reviewed, dictated and finalized at location R.
[2024-12-18 17:47] VITALS: BP 122/72; PULSE 99; RESP 18; TEMP 36.3; O2SAT 98
--- NOTE | 2024-12-18 17:48 | ECG_ITS ---
Test Date: 2024-12-18 21:36:01 Measurements Intervals [place] Rate: 69 P: 25 NM: 184 QRS: 264 QRSD: 105 T: 11 QT: 385 QTc: 415 Interpretive Statements SINUS RHYTHM PATTERN CONSISTENT WITH PULMONARY DISEASE INCOMPLETE RIGHT BUNDLE BRANCH BLOCK INFERIOR INFARCT, AGE INDETERMINATE ABNORMAL ECG No previous ECG available for comparison Electronically Signed On 12-19-2024 06:11:23 CDT by Ismael Lal D.O.
[2024-12-18 17:58] LABS: Hematocrit 48.2 % (42.0-52.0); Hemoglobin 16.2 g/dL (14.0-18.0); Immature Granulocyte Percent A 0.4 % (0-0.5); Lymphocytes Absolute Auto 1.91 K/mm3 (0.9-3.2); Mean Corpuscular HGB Conc 33.6 g/dl (32-36); Mean Corpuscular Hemoglobin 30.1 pg (26-34); Mean Corpuscular Volume 89.4 fl (80-100); Nucleated Red Blood Cells Absolute Auto 0.000 K/mm3 (0.0-0.012); Nucleated Red Blood Cells Perc 0.0 % (0.0-0.2); Platelet Count Result 224 k/mm3 (150-375); Red Blood Count 5.39 M/mm3 (4.6-6.20); White Blood Count 8.2 K/mm3 (4.5-10.0)
[2024-12-18 18:04] LABS: Add Urine Microscopic? NO; Appearance Urine Clear (Clear); Glucose Urine UA 3+ mg/dL (Negative); Leukocyte Esterase Ur Negative LEU/UL (Negative); Nitrate Urine Negative (Negative); Specific Grav Ur 1.033 (1.001-1.035)
[2024-12-18 18:07] LABS: Alanine Aminotransferase 85 U/L (6-50); Albumin Level 4.5 g/dL (3.5-5.1); Alkaline Phosphatase 59 U/L (38-126); Anion Gap 12 mmol/L (4-12); Aspartate Amino Transferase 60 U/L (17-59); Bilirubin,Total 0.3 mg/dL (0.2-1.3); Blood Urea Nitrogen 17 mg/dL (9-20); Calcium 9.6 mg/dL (8.4-10.2); Carbon Dioxide 25 mmol/L (22-30); Chloride 96 mmol/L (98-107); Estimated CRCL calculation 44 ml/min; Estimated Glomerular Filt Rate > 60; Glucose 332 mg/dL (65-110); Potassium 4.1 mmol/L (3.4-5.0); Sodium 133 mmol/L (137-145); Total Protein 7.9 g/dL (6.3-8.2)
[2024-12-18 21:00] VITALS: BP 113/75; PULSE 71; RESP 16; O2SAT 99
--- NOTE | 2024-12-18 22:14 | ED.RECABL ---
HPI - Recheck/Abnormal Lab/Rx General Chief Complaint: Recheck/Abnormal Lab/Rx Stated Complaint: htn Time Seen by Provider: 12/18/24 21:16 Source: patient and family Mode of arrival: ambulatory Limitations: no limitations History of Present Illness HPI narrative: This is an 79-year-old male that presents to the emergency department for elevated blood sugar readings. Reports over the last couple of days his blood sugars have been in the 300s. He has had some lightheadedness, myalgias, generalized weakness with this. Denies fevers, chest pain, shortness of breath, cough, vomiting, current pain. Related Data Home Medications ?Medication ?Instructions ?Recorded ?Confirmed ?Last Taken ?Type cetirizine 10 mg tablet (Zyrtec) 10 mg PO DAILY PRN 11/26/24 11/26/24 Unknown History cholecalciferol (vitamin D3) 50 50 mcg PO DAILY 11/26/24 11/26/24 Unknown History mcg (2,000 unit) capsule Allergies Allergy/AdvReac Type Severity Reaction Status Date / Time No Known Allergies Allergy Verified 12/18/24 17:49 Review of Systems Review of Systems: All systems reviewed & are unremarkable except as noted in HPI and below PMFSH Past Medical History Medical History Hepatic steatosis Liver nodule 5mm Environmental allergies Type 2 diabetes mellitus without complications Chronic pancreatitis Chronic low back pain Vitamin D deficiency GERD (gastroesophageal reflux disease) Hypertension Hyperlipidemia Thyroid nodule (~01/2020) 02/07: biopsy consistent with benign follicular nodule with features of hemorrhagic cyst Paget's disease of skin of scrotum (~2016) Follows at [facility] Surgical History Surgical History S/P cystourethroscopy with dilation of urethral stricture (~08/2022) History of prostate surgery (~02/24/21) TURP Social History Social History Smoking packs per day: 0.5 Smoking cigarettes per day: 10.0 Years smoked: 20 Smoking pack-years: 10.00 Smoking status: Former smoker Tobacco type: cigarettes Smoking end date: 03/21/03 Alcohol intake: never Substance use: never Substance use type: does not use Do You Feel Safe in your Home?: Yes Lack of Transportation: No Lack of Food: Never True Current Housing: I Have Housing Concerned About Future Housing: No Difficulty Paying Gas/Electric Bills: No Difficulty Paying for Meds: No Currently Unemployed: No Education: High School Diploma/GED Difficulty w/ Childcare or Family Care: No Living arrangements: with family Occupation/Education: retired Gender identity (if verbalized by the patient): Male Sexual Orientation (if Verbalized by the Patient): Straight or Heterosexual Spiritual care concerns: No Agree to blood products: Yes Exam Narrative: GENERAL: Elderly, well-nourished, and in no acute distress. HEAD: Normocephalic, atraumatic. EYES: EOMI. ENT: Nares clear, no rhinorrhea or epistaxis. Mucous membranes moist. Oropharynx without tonsillar hypertrophy exudate or other lesions. CHEST: Clear to auscultation. No respiratory distress. No wheezes rales or rhonchi HEART: Regular rate and rhythm. No murmur heard. Normal peripheral pulses. ABDOMEN: Soft, nontender, nondistended, normal active bowel sounds. EXTREMITIES: Normal range of motion. No edema. SKIN: Warm, dry, no rash. NEURO: Alert, no focal deficits. PSYCH: Normal mood and affect Course Course Emergency Course: patient and family updated on workup and agree with plan of care Vital Signs Vital signs: Vital Signs Temperature 97.4 F L 12/18/24 17:47 Pulse Rate 99 12/18/24 17:47 Respiratory Rate 18 12/18/24 17:47 Blood Pressure 122/72 12/18/24 17:47 Pulse Oximetry 98 12/18/24 17:47 Oxygen Delivery Room Air 12/18/24 17:47 Temperature 97.4 F L 12/18/24 17:47 Pulse Rate 75 12/18/24 22:15 Respiratory Rate 12 12/18/24 22:15 Blood Pressure 112/81 12/18/24 22:15 Pulse Oximetry 100 12/18/24 22:15 Oxygen Delivery Room Air 12/18/24 17:47 MDM - Recheck/Abnormal Lab/Rx MDM Narrative Medical decision making narrative: Patient presents to the ER for hyperglycemia. Reporting blood sugars in the 300s. Ongoing over the last couple of days. Reporting associated weakness, lightheadedness. He is afebrile and nontoxic appearing. His vitals are stable. Cbc without leukocytosis. Metabolic panel with transaminitis, which appears chronic. Urine without evidence of infection. COVID, influenza and RSV screens are negative. CT brain without acute findings. Chest x-ray without acute cardiopulmonary abnormality. patient and family updated on workup and agree with plan of care. He is to follow up with his PCP for continued care of his diabetes. He was given warnings to return to the ER Differential Diagnosis Differential diagnosis: Likely other (hyperglycemia, DKA, infection, electrolyte derangement) Lab Data Attestation: I reviewed the patient's lab results. 12/18/24 17:51 12/18/24 17:51 Labs: Lab Results 12/18/24 12/18/24 12/18/24 Range/Units 17:47 17:51 17:57 WBC 8.2 (4.5-10.0) K/mm3 RBC 5.39 (4.6-6.20) M/mm3 Hgb 16.2 (14.0-18.0) g/dL Hct 48.2 (42.0-52.0) % MCV 89.4 (80-100) fl MCH 30.1 (26-34) pg MCHC 33.6 (32-36) g/dl RDW 13.2 (11.5-14.5) % Plt Count 224 (150-375) k/mm3 MPV 9.6 (7.4-10.4) fl Immature Gran % (Auto) 0.4 (0-0.5) % Neut % (Auto) 61.1 (45.5-73.1) % Lymph % (Auto) 23.3 (18.3-44.2) % Rankin % (Auto) 8.3 (2.6-8.5) % Eos % (Auto) 5.9 H (0-4.4) % Baso % (Auto) 1.0 (0.2-1.2) % Lymph # (Auto) 1.91 (0.9-3.2) K/mm3 Rankin # (Auto) 0.7 H (0.1-0.6) K/mm3 Eos # (Auto) 0.5 H (0-0.3) K/mm3 Baso # (Auto) 0.1 (0.0-0.1) K/mm3 Abs Immat Gran (auto) 0.03 (0.00-0.031) K/mm3 Absolute Neuts (auto) 5.0 (1.3-6.7) K/mm3 Absolute Nucleated RBC 0.000 (0.0-0.012) K/mm3 Nucleated RBC % 0.0 (0.0-0.2) % Sodium 133 L (137-145) mmol/L Potassium 4.1 (3.4-5.0) mmol/L Chloride 96 L (98-107) mmol/L Carbon Dioxide 25 (22-30) mmol/L Anion Gap 12 (4-12) mmol/L BUN 17 (9-20) mg/dL Creatinine 0.99 (0.7-1.3) mg/dL Estim Creat Clear Calc 44 ml/min Estimated GFR > 60 (59 - ) Glucose 332 H (65-110) mg/dL POC Capillary Glucose 343 H (65-105) mg/dl Calcium 9.6 (8.4-10.2) mg/dL Total Bilirubin 0.3 (0.2-1.3) mg/dL AST 60 H (17-59) U/L ALT 85 H (6-50) U/L Alkaline Phosphatase 59 (38-126) U/L Total Protein 7.9 (6.3-8.2) g/dL Albumin 4.5 (3.5-5.1) g/dL Urine Color Yellow (Yellow) Urine Appearance Clear (Clear) Urine pH 6.5 (5.0-9.0) Ur Specific Temple 1.033 (1.001-1.035) Urine Protein Negative (Negative) mg/dL Urine Glucose (UA) 3+ H (Negative) mg/dL Urine Ketones Negative (Negative) mg/dL Ur Blood (Man) Negative (Negative) Urine Nitrate Negative (Negative) Urine Bilirubin Negative (Negative) Urine Urobilinogen 0.2 (<2.0) mg/dL Leukocyte Esterase Rfl Negative (Negative) SAIDA/UL Influenza A (RT-PCR) (Negative) Influenza B (RT-PCR) (Negative) RSV (RT-PCR) (Negative) SARS-CoV-2 RNA (RT-PCR) (Negative) 12/18/24 Range/Units 22:35 WBC (4.5-10.0) K/mm3 RBC (4.6-6.20) M/mm3 Hgb (14.0-18.0) g/dL Hct (42.0-52.0) % MCV (80-100) fl MCH (26-34) pg MCHC (32-36) g/dl RDW (11.5-14.5) % Plt Count (150-375) k/mm3 MPV (7.4-10.4) fl Immature Gran % (Auto) (0-0.5) % Neut % (Auto) (45.5-73.1) % Lymph % (Auto) (18.3-44.2) % Rankin % (Auto) (2.6-8.5) % Eos % (Auto) (0-4.4) % Baso % (Auto) (0.2-1.2) % Lymph # (Auto) (0.9-3.2) K/mm3 Rankin # (Auto) (0.1-0.6) K/mm3 Eos # (Auto) (0-0.3) K/mm3 Baso # (Auto) (0.0-0.1) K/mm3 Abs Immat Gran (auto) (0.00-0.031) K/mm3 Absolute Neuts (auto) (1.3-6.7) K/mm3 Absolute Nucleated RBC (0.0-0.012) K/mm3 Nucleated RBC % (0.0-0.2) % Sodium (137-145) mmol/L Potassium (3.4-5.0) mmol/L Chloride (98-107) mmol/L Carbon Dioxide (22-30) mmol/L Anion Gap (4-12) mmol/L BUN (9-20) mg/dL Creatinine (0.7-1.3) mg/dL Estim Creat Clear Calc ml/min Estimated GFR (59 - ) Glucose (65-110) mg/dL POC Capillary Glucose (65-105) mg/dl Calcium (8.4-10.2) mg/dL Total Bilirubin (0.2-1.3) mg/dL AST (17-59) U/L ALT (6-50) U/L Alkaline Phosphatase (38-126) U/L Total Protein (6.3-8.2) g/dL Albumin (3.5-5.1) g/dL Urine Color (Yellow) Urine Appearance (Clear) Urine pH (5.0-9.0) Ur Specific [place] (1.001-1.035) Urine Protein (Negative) mg/dL Urine Glucose (UA) (Negative) mg/dL Urine Ketones (Negative) mg/dL Ur Blood (Man) (Negative) Urine Nitrate (Negative) Urine Bilirubin (Negative) Urine Urobilinogen (<2.0) mg/dL Leukocyte Esterase Rfl (Negative) SAIDA/UL Influenza A (RT-PCR) Negative (Negative) Influenza B (RT-PCR) Negative (Negative) RSV (RT-PCR) Negative (Negative) SARS-CoV-2 RNA (RT-PCR) Negative (Negative) Imaging Data Radiologist's impression: ITS Impressions Head CT 12/18/24 18:17 IMPRESSION: 1. No acute intracranial findings. Chest X-Ray 12/18/24 18:19 IMPRESSION: 1. No acute cardiopulmonary findings. Critical Care Time Critical Care Time Critical Care Time: No Discharge Plan Discharge Clinical Impression: Elevated blood sugar Patient Disposition: Home Condition: Stable Instructions: Type 2 Diabetes Management for Adults (ED) Additional Instructions: Return to the emergency department if you experience fever, chest pain, shortness of breath, abdominal pain with nausea and vomiting, weakness, or any other symptoms that are concerning to you. Your blood work and imaging are reassuring here. No signs for a UTI, COVID and flu tests are negative Follow up with your primary care doctor for further management of your diabetes Patient Language: [place] Prescriptions: No Action (DME) blood-glucose meter [Blood Glucose Monitoring] Kit See Rx Instructions .Route Qty: 1 0RF Rx Instructions: check blood sugars q.day As directed (DME) lancets [Fingerstix Lancets] Misc See Rx Instructions .Route Qty: 100 2RF Rx Instructions: check blood sugars q.day As directed (DME) Pharmacist Choice Strip See Rx Instructions .Route Qty: 200 0RF Rx Instructions: check blood sugars q.day As directed cholecalciferol (vitamin D3) 50 mcg (2,000 unit) capsule 50 mcg PO DAILY metformin 1,000 mg tablet 1,000 mg PO BID Qty: 180 1RF losartan 50 mg tablet 50 mg PO DAILY Qty: 90 1RF glipizide 10 mg tablet extended release 24hr 10 mg PO BID Qty: 180 1RF atorvastatin 10 mg tablet 10 mg PO QHS Qty: 90 1RF cetirizine [Zyrtec] 10 mg tablet 10 mg PO DAILY PRN Jardiance 25 mg tablet 25 mg PO QAM Qty: 90 1RF hydrochlorothiazide 12.5 mg tablet 12.5 mg PO DAILY Qty: 90 1RF Follow-up/Referrals: Eimly Diaz MD [Primary Care Provider, Family Practice]
[2024-12-18 22:15] VITALS: BP 112/81; PULSE 75; RESP 12; O2SAT 100
[2024-12-18] MEDS: SODIUM CHLORIDE 0.9% IV 1,000 ML 999 ML IV CONT (22:17)
[2024-12-18 23:21] LABS: Influenza A QL RT-PCR Negative (Negative); Influenza B QL RT-PCR Negative (Negative); RSV RNA, RT-PCR Negative (Negative); SARS-CoV-2 RNA PCR Negative (Negative)
[2024-12-18 23:46] VITALS: BP 137/90; PULSE 70; RESP 20; O2SAT 97
== END 2024-12-18 23:47 | disposition home or self-care (01) ==
PROVIDERS: Registered Nurse; Emergency Provider Physician Assistant; PCP Family Medicine
DX: E11.65 Type 2 diabetes mellitus with hyperglycemia (principal); E78.5 Hyperlipidemia, unspecified; I10 Essential (primary) hypertension; Z87.891 Personal history of nicotine dependence; Z20.822 Contact with and (suspected) exposure to COVID-19
CPT/HCPCS: 36415; 70450; 71046; 80053; 81003; 82948; 85025; 87637; 93005; 96360; 99284; J7030

== ENCOUNTER 2024-12-24 09:56 | Outpatient (CLI) | payer OTHER, SELFPAY ==
[2024-12-24 13:03] LABS: Anion Gap 8 mmol/L (4-12); Blood Urea Nitrogen 13 mg/dL (9-20); Calcium 9.2 mg/dL (8.4-10.2); Carbon Dioxide 31 mmol/L (22-30); Chloride 99 mmol/L (98-107); Estimated Glomerular Filt Rate > 60; Glucose 76 mg/dL (65-110); Potassium 4.1 mmol/L (3.4-5.0); Sodium 138 mmol/L (137-145)
== END 2024-12-24 09:57 | disposition home or self-care (01) ==
LOC: ANHGOSHLAB 09:57
PROVIDERS: PCP Family Medicine; Visit Provider Family Medicine
DX: I10 Essential (primary) hypertension (principal); Z79.899 Other long term (current) drug therapy
CPT/HCPCS: 36415; 80048